=== PATIENT | male | born 1935 | race Caucasian/White ===

== ENCOUNTER 2017-10-11 17:00 | Inpatient (IN) | payer MEDICARE, BC ==
[~2017-10-11] VITALS: Ht 182.9 cm; Wt 63.7 kg
[~2017-10-11 17:00] MED LIST: AUGM875T PO; THYR15 PO
[2017-10-11 17:16] VITALS: BP 109/74; PULSE 128; RESP 18; O2SAT 99
[2017-10-11] MEDS ORDERED: SODIUM CHLORIDE 0.9% FLUSH 10 ML FLUSH IVF PRN (17:30)
[2017-10-11] MEDS ORDERED: DILTIAZEM HCL 25 MG/5 ML VIAL IV ONE (17:45)
--- NOTE | 2017-10-11 17:51 | RADRPT ---
EXAM DATE/TIME: 10/11/2017 17:32 [facility] COMPARISON: CHEST SINGLE AP, March 11, 2016, 18:41. INDICATIONS : Shortness of breath. MEDICAL HISTORY : Atrial fibrillation. SURGICAL HISTORY : None. ENCOUNTER: Initial ACUITY: 1 day PAIN SCORE: 0/10 LOCATION: Bilateral chest FINDINGS: The cardiac silhouette is normal in transverse diameter. The lungs are hyperinflated but clear. No ef fusions are identified. There is prominence of the aortic knob is with calcification characteristic o f atherosclerotic vascular disease. Calcified granuloma is present in the right hilum. Calcified gran uloma is present in the right lung. CONCLUSION: 1. Findings of COPD. No acute cardiopulmonary disease. Ilan Mendoza MD on October 11, 2017 at 17:48 Board Certified Radiologist. This report was verified electronically.
[2017-10-11 18:09] LABS: AUTOMATED NEUTROPHIL # 2.6 TH/MM3 (1.8-7.7); BASOPHIL % 0.7 % (0.0-2.0); EOSINOPHIL # 0.1 TH/MM3 (0-0.4); EOSINOPHIL % 1.3 % (0.0-4.0); HEMATOCRIT 36.7 % (39.0-51.0); HEMOGLOBIN 12.9 GM/DL (13.0-17.0); LYMPH % 54.5 % (9.0-44.0); LYMPHOCYTE # 3.9 TH/MM3 (1.0-4.8); MEAN CELL VOLUME 89.9 FL (80.0-100.0); MEAN CORPUSCULAR HEMOGLOBIN 31.7 PG (27.0-34.0); MEAN CORPUSCULAR HGB CONC 35.3 % (32.0-36.0); MONO % 7.8 % (0.0-8.0); MONOCYTE # 0.6 TH/MM3 (0-0.9); NEUT % 35.7 % (16.0-70.0); PLATELET COUNT 144 TH/MM3 (150-450); RED BLOOD COUNT 4.08 MIL/MM3 (4.50-5.90); RED CELL DISTRIBUTION WIDTH 13.9 % (11.6-17.2); WHITE BLOOD COUNT 7.2 TH/MM3 (4.0-11.0)
[2017-10-11 18:20] LABS: INTERNATIONAL NORMALIZED RATIO 1.2 RATIO; PROTHROMBIN TIME - PATIENT 12.1 SEC (9.8-11.6)
--- NOTE | 2017-10-11 18:27 | PD ---
HPI Chief Complaint: Cardiac Complaint Time Seen by Provider: 17:22 Travel History International Travel<30 days: No Contact w/Intl Traveler<30days: No Traveled to known affect area: No History of Present Illness HPI 82-year-old male states that he's been feeling palpitations since last night. His states that over the past couple weeks he's had an unsteady gait and not acting himself. The patient denies any current chest pain or pressure. He states he's been out of atrial fibrillation for the past 5 years. He states he used to follow with Dr. Scruggs and followed with him about a year ago. He states his last stress test was 6 years ago and was okay as far as he knows. He denies any other concurrent complaints. Quality is irregular. Severity is persistent per patient. Duration is about since last night. He states he is not on any anticoagulation at this time. He doesn't remember what he used to be on. PFSH Past Medical History Atrial Fibrillation: Yes (ABLATION X 3) Blood Disorders: No Heart Rhythm Problems: Yes Cancer: Yes (PROSTATE) Cardiac Catheterization: Yes Cardiovascular Problems: Yes Chest Pain: No Congestive Heart Failure: No Diminished Hearing: No Endocrine: No Genitourinary: No Hypertension: No Immune Disorder: No Implanted Vascular Access Dvce: No Musculoskeletal: No Neurologic: No Psychiatric: No Reproductive: No Respiratory: Yes Myocardial Infarction: Yes Thyroid Disease: Yes Past Surgical History Abdominal Surgery: Yes (HERNIA X 2) Tonsillectomy: Yes Other Surgery: Yes (ablation) Social History Alcohol Use: No Tobacco Use: No Substance Use: No Allergies-Medications (Allergen,Severity, Reaction): Coded Allergies: No Known Allergies (Unverified , 03/11/16) Reported Meds & Prescriptions Reported Meds & Active Scripts Active Reported [place] Thyroid (Thyroid) 15 Mg Tab 30 Mg PO DAILY Review of Systems Except as stated in HPI: all other systems reviewed are Neg Physical Exam Narrative GENERAL: Well-nourished, well-developed patient. SKIN: Warm and dry. HEAD: Normocephalic and atraumatic. EYES: No injection or drainage. ENT: No nasal drainage noted. NECK: Supple, trachea midline. CARDIOVASCULAR: irregular rate and rhythm RESPIRATORY: Breath sounds equal bilaterally. No accessory muscle use. GASTROINTESTINAL: Abdomen soft, non-tender, nondistended. EXTREMITIES: No edema. NEUROLOGICAL: Awake and alert. Motor and sensory grossly within normal limits. Normal speech. Data Data Last Documented VS Vital Signs Date Time Temp Pulse Resp B/P (MAP) Pulse Ox O2 Delivery O2 Flow Rate FiO2 10/11/17 17:16 99 Room Air 10/11/17 17:16 128 18 109/74 (86) Orders Orders Electrocardiogram (10/11/17 17:28) B-Type Natriuretic Peptide (10/11/17 17:28) Ckmb (Isoenzyme) Profile (10/11/17 17:28) Complete Blood Count With Diff (10/11/17 17:28) Comprehensive Metabolic Panel (10/11/17 17:28) Magnesium (Mg) (10/11/17 17:28) Prothrombin Time / Inr (Pt) (10/11/17 17:28) Act Partial Throm Time (Ptt) (10/11/17 17:28) Troponin I (10/11/17 17:28) Chest, Single Ap (10/11/17 17:28) Ecg Monitoring (10/11/17 17:28) Bilateral Bp Monitoring (10/11/17 17:28) Iv Access Insert/Monitor (10/11/17 17:28) Oximetry (10/11/17 17:28) Sodium Chloride 0.9% Flush (Ns Flush) (10/11/17 17:30) Diltiazem Inj (Cardizem Inj) (10/11/17 17:45) Ct Brain W/O Iv Contrast(Rout) (10/11/17 ) Consult Cardiology (10/11/17 ) Diltiazem Inj (Cardizem Inj) (10/11/17 18:30) Sodium Chloride 0.9% Flush (Ns Flush) (10/11/17 18:30) (Hub Use Only)Inp Phy Cons/Ref (10/11/17 ) Digoxin Inj (Lanoxin Inj) (10/11/17 18:45) Admit Order (Ed Use Only) (10/11/17 18:38) Aspirin (Aspirin) (10/11/17 18:45) Heparin Inj (Heparin Inj) (10/11/17 18:45) Heparin Inj (Heparin Inj) (10/12/17 00:45) Heparin Inj (Heparin Inj) (10/12/17 00:45) Heparin-D5w 25,000 U/250 Ml (Heparin-D5w (10/11/17 18:45) Cbc No Diff, Includes Plts (10/14/17 06:00) Act Partial Throm Time (Ptt) (10/12/17 01:41) Occult Blood (Hemoccult) Stool (10/11/17 18:41) Labs Laboratory Tests Test 10/11/17 17:20 White Blood Count 7.2 TH/MM3 Red Blood Count 4.08 MIL/MM3 Hemoglobin 12.9 GM/DL Hematocrit 36.7 % Mean Corpuscular Volume 89.9 FL Mean Corpuscular Hemoglobin 31.7 PG Mean Corpuscular Hemoglobin Concent 35.3 % Red Cell Distribution Width 13.9 % Platelet Count 144 TH/MM3 Mean Platelet Volume 8.0 FL Neutrophils (%) (Auto) 35.7 % Lymphocytes (%) (Auto) 54.5 % Monocytes (%) (Auto) 7.8 % Eosinophils (%) (Auto) 1.3 % Basophils (%) (Auto) 0.7 % Neutrophils # (Auto) 2.6 TH/MM3 Lymphocytes # (Auto) 3.9 TH/MM3 Monocytes # (Auto) 0.6 TH/MM3 Eosinophils # (Auto) 0.1 TH/MM3 Basophils # (Auto) 0.0 TH/MM3 CBC Comment AUTO DIFF Prothrombin Time 12.1 SEC Prothromb Time International Ratio 1.2 RATIO Activated Partial Thromboplast Time 26.4 SEC Blood Urea Nitrogen 25 MG/DL Creatinine 1.03 MG/DL Random Glucose 100 MG/DL Total Protein 7.0 GM/DL Albumin 4.2 GM/DL Calcium Level 9.1 MG/DL Magnesium Level 2.1 MG/DL Alkaline Phosphatase 56 U/L Aspartate Amino Transf (AST/SGOT) 18 U/L Alanine Aminotransferase (ALT/SGPT) 28 U/L Total Bilirubin 0.3 MG/DL Sodium Level 142 MEQ/L Potassium Level 4.2 MEQ/L Chloride Level 107 MEQ/L Carbon Dioxide Level 27.5 MEQ/L Anion Gap 8 MEQ/L Estimat Glomerular Filtration Rate 69 ML/MIN Total Creatine Kinase 100 U/L Troponin I LESS THAN 0.02 NG/ML MDM Medical Decision Making Medical Screen Exam Complete: Yes Emergency Medical Condition: Yes Medical Record Reviewed: Yes (past history confirmed) Interpretation(s) A. fib shows a flutter at 140 with mild elevation inferiorly without Cipro culture changes CBC & BMP Diagram 10/11/17 17:20 CBC & BMP Diagram 10/11/17 17:20 Total Protein 7.0, Albumin 4.2, Calcium Level 9.1, Magnesium Level 2.1, Alkaline Phosphatase 56, Aspartate Amino Transf (AST/SGOT) 18, Alanine Aminotransferase (ALT/SGPT) 28, Total Bilirubin 0.3 Last 24 hours Impressions Chest X-Ray 10/11/17 1728 Signed Impressions: Service Date/Time: Wednesday, October 11, 2017 17:32 - CONCLUSION: 1. Findings of COPD. No acute cardiopulmonary disease. Ilan Mendoza MD Differential Diagnosis Atrial fibrillation, CT, SVT, renal failure, electrolyte abnormality Narrative Course 82-year-old male presents with A. fib with RVR. He has rate related ischemic changes inferiorly on his EKG. We'll discuss with cardiology. Went back to talk with patient and he was already seen by Dr. Boyle and states he has not seen Dr. Scruggs for at least a year and I talked with him about seen who is on-call for Dr. Scruggs or whether he wanted to continue to see them the man who ordered he saw him and he states he would like to continue with Dr. Boyle. Consult placed and patient agrees to admission to the hospital CT without bleed when discussed with radiologist, will start on heparin drip and aspirin. Given creatinine is normal will loaded with digoxin as discussed with Dr. Boyle. Given patient is still tachycardic Will place on Cardizem drip and he'll be monitored in the intermediate care area. Critical Care Narrative Aggregate critical care time was 31 minutes. Time to perform other separately billable procedures was not included in the critical care time. My time did not include minutes spent treating any other patients simultaneously or on activities that did not directly contribute to the patient's treatment. The services I provided to this patient were to treat and/or prevent clinically significant deterioration that could result in: hypotension, CT, shock I provided critical care services requiring my management, as noted below: Chart data review, documentation time, medication orders and management, vital sign assessments/reviewing monitor data, ordering and reviewing lab tests, ordering and interpreting/reviewing x-rays and diagnostic studies, care of the patient and discussion of the patient with the admitting physicians. Physician Communication Physician Communication dr boyle states to give low dose Cardizem and if creatinine is okay to give a half a milligram of digoxin. If CT brain shows no bleed to loaded with heparin Diagnosis Primary Impression: Atrial flutter with rapid ventricular response Additional Impressions: ST segment changes on electrocardiogram Dizziness Admitting Information Admitting Physician Requests: Admit Nano Burrows MD Oct 11, 2017 18:27
[2017-10-11] MEDS ORDERED: SODIUM CHLORIDE 0.9% FLUSH 10 ML FLUSH IV FLUSH PRN ×2 (18:30→19:30)
[2017-10-11 18:31] LABS: ALBUMIN 4.2 GM/DL (3.4-5.0); ALT (GPT) 28 U/L (12-78); AST (GOT) 18 U/L (15-37); BICARBONATE 27.5 MEQ/L (21.0-32.0); BLOOD UREA NITROGEN 25 MG/DL (7-18); CALCIUM 9.1 MG/DL (8.5-10.1); CHLORIDE 107 MEQ/L (98-107); CREATININE 1.03 MG/DL (0.60-1.30); GLOMERULAR FILTRATION RATE 69 ML/MIN (>89); GLUCOSE,RANDOM 100 MG/DL (74-106); MAGNESIUM 2.1 MG/DL (1.5-2.5); SODIUM (NA) 142 MEQ/L (136-145)
[2017-10-11 18:35] LABS: ALKALINE PHOSPHATASE 56 U/L (45-117); TOTAL BILIRUBIN ADULT 0.3 MG/DL (0.2-1.0); TROPONIN I LESS THAN 0.02 NG/ML (0.02-0.05)
[2017-10-11] MEDS ORDERED: DIGOXIN 0.5 MG/2 ML VIAL IV PUSH ONE (18:45)
[2017-10-11] MEDS ORDERED: ASPIRIN 325 MG TAB PO ONE (18:45)
[2017-10-11] MEDS ORDERED: HEPARIN SODIUM - IV 10,000 UNITS/10 ML VIAL IV ONE (18:45)
[2017-10-11 19:04] LABS: LYMPHOCYTES 70 % (9-44); MONOCYTES 4 % (0-8); NEUTROPHIL # MANUAL DIFF 1.7 TH/MM3 (1.8-7.7); POLYS (SEG NEUTROPHILS) 24 % (16-70)
--- NOTE | 2017-10-11 19:14 | HHI.HP ---
HPI Service [facility] Primary Care Physician Unknown Admission Diagnosis atrial flutter with rvr Diagnoses: (1) Atrial fibrillation with RVR Diagnosis: Principal (2) TIA (transient ischemic attack) Diagnosis: Principal (3) Thrombocytopenia Diagnosis: Principal (4) COPD (chronic obstructive pulmonary disease) Diagnosis: Principal Travel History International Travel<30 Days: No Contact w/Intl Traveler <30 Da: No Traveled to Known Affected Are: No History of Present Illness This is an 82-year-old male with PMH of HTN, Prostate CA, A. fib s/p Ablation x3 and Hypothyroidism who presented to the ER secondary to complaints of palpitations. States palpitations started approx 2-3 wks ago, have been intermittent, now more frequent. Moderate severity. No associated chest pain or SOB. also notes episodes of dizziness and gait instability. No facial droop, slurred speech or weakness reported. On arrival, pt noted to be in A- fib w/ RVR, HR 130's. EKG w/ rate-related ischemic changes. Dr. Boyle consulted, recommended Cardizem/Heparin gtt. BP 109/74, HR 128, O2 sat 99% on RA, Afebrile. CBC unremarkable except for platelets 144, previously 95 on 07/31. Chemistry essentially unremarkable except for BUN 25. GFR 69. Troponin negative. BNP 106. CXR with COPD. CT Head w/ no acute findings. Review of Systems Except as stated in HPI: all other systems reviewed are Neg ROS: 14 point review of systems otherwise negative. Past Family Social History Past Medical History PMH: HTN, Prostate CA, A. fib s/p Ablation x3 and Hypothyroidism Past Surgical History PAST SURGICAL HISTORY: Hernia Repair, Tonsillectomy Allergies: Coded Allergies: No Known Allergies (Unverified , 03/11/16) Family History PAST FAMILY HISTORY: Reviewed. No h/o DM or CAD Social History PAST SOCIAL HISTORY: Negative for alcohol, tobacco or drugs. Physical Exam Vital Signs Vital Signs Date Time Temp Pulse Resp B/P (MAP) Pulse Ox O2 Delivery O2 Flow Rate FiO2 10/11/17 17:16 99 Room Air 10/11/17 17:16 128 18 109/74 (86) 99 Room Air Physical Exam PE: GENERAL: Very pleasant elderly white male in no acute distress. HEENT: PERRLA, EOMI. No scleral icterus or conjunctival pallor. No lid lag or facial droop. CARDIOVASCULAR: Irregularly irregular. No obvious murmurs to auscultation. No chest tenderness to palpation. RESPIRATORY: No obvious rhonchi or wheezing. Clear to auscultation. Breath sounds equal bilaterally. GASTROINTESTINAL: Abdomen soft, non-tender, nondistended. BS normal. MUSCULOSKELETAL: Extremities without clubbing, cyanosis, or edema. No obvious deformities. NEUROLOGICAL: Awake, alert and oriented x4. No focal neurologic deficits. Moving both upper and lower extremities spontaneously. Laboratory Laboratory Tests Test 10/11/17 17:20 White Blood Count 7.2 Red Blood Count 4.08 Hemoglobin 12.9 Hematocrit 36.7 Mean Corpuscular Volume 89.9 Mean Corpuscular Hemoglobin 31.7 Mean Corpuscular Hemoglobin Concent 35.3 Red Cell Distribution Width 13.9 Platelet Count 144 Mean Platelet Volume 8.0 Neutrophils (%) (Auto) 35.7 Lymphocytes (%) (Auto) 54.5 Monocytes (%) (Auto) 7.8 Eosinophils (%) (Auto) 1.3 Basophils (%) (Auto) 0.7 Neutrophils # (Auto) 2.6 Lymphocytes # (Auto) 3.9 Monocytes # (Auto) 0.6 Eosinophils # (Auto) 0.1 Basophils # (Auto) 0.0 CBC Comment AUTO DIFF Differential Total Cells Counted 100 Neutrophils % (Manual) 24 Lymphocytes % 70 Monocytes % 4 Eosinophils % 2 Neutrophils # (Manual) 1.7 Differential Comment FINAL DIFF MANUAL Prothrombin Time 12.1 Prothromb Time International Ratio 1.2 Activated Partial Thromboplast Time 26.4 Blood Urea Nitrogen 25 Creatinine 1.03 Random Glucose 100 Total Protein 7.0 Albumin 4.2 Calcium Level 9.1 Magnesium Level 2.1 Alkaline Phosphatase 56 Aspartate Amino Transf (AST/SGOT) 18 Alanine Aminotransferase (ALT/SGPT) 28 Total Bilirubin 0.3 Sodium Level 142 Potassium Level 4.2 Chloride Level 107 Carbon Dioxide Level 27.5 Anion Gap 8 Estimat Glomerular Filtration Rate 69 Total Creatine Kinase 100 Troponin I LESS THAN 0.02 B-Type Natriuretic Peptide 106 Result Diagram: 10/11/17 1720 10/11/17 1720 Caprini VTE Risk Assessment Caprini VTE Risk Assessment: Mod/High Risk (score >= 2) Caprini Risk Assessment Model Point Value = 1 Point Value = 2 Point Value = 3 Point Value = 5 Age 41-60 Minor surgery BMI > 25 kg/m2 Swollen legs Varicose veins or History of unexplained or recurrent spontaneous Oral contraceptives or hormone replacement Sepsis (< 1 month) Serious lung disease, including pneumonia (< 1 month) Abnormal pulmonary function Acute myocardial infarction Congestive heart failure (< 1 month) History of inflammatory bowel disease Medical patient at bed rest Age 61-74 Arthroscopic surgery Major open surgery (> 45 min) Laparoscopic surgery (> 45 min) Malignancy Confined to bed (> 72 hours) Immobilizing plaster cast Central venous access Age >= 75 History of VTE Family history of VTE Factor V Leiden Prothrombin [id number] Lupus anticoagulant Anticardiolipin antibodies Elevated serum homocysteine Heparin-induced thrombocytopenia Other congenital or acquired thrombophilia Stroke (< 1 month) Elective arthroplasty Hip, pelvis, or leg fracture Acute spinal cord injury (< 1 month) Prophylaxis Regimen Total Risk Factor Score Risk Level Prophylaxis Regimen 0-1 Low Early ambulation 2 Moderate Order ONE of the following: *Sequential Compression Device (SCD) *Heparin 5000 units SQ BID 3-4 Higher Order ONE of the following medications: *Heparin 5000 units SQ TID *Enoxaparin/Lovenox 40 mg SQ daily (WT < 150 kg, CrCl > 30 mL/min) *Enoxaparin/Lovenox 30 mg SQ daily (WT < 150 kg, CrCl > 10-29 mL/min) *Enoxaparin/Lovenox 30 mg SQ BID (WT < 150 kg, CrCl > 30 mL/min) AND/OR *Sequential Compression Device (SCD) 5 or more Highest Order ONE of the following medications: *Heparin 5000 units SQ TID (Preferred with Epidurals) *Enoxaparin/Lovenox 40 mg SQ daily (WT < 150 kg, CrCl > 30 mL/min) *Enoxaparin/Lovenox 30 mg SQ daily (WT < 150 kg, CrCl > 10-29 mL/min) *Enoxaparin/Lovenox 30 mg SQ BID (WT < 150 kg, CrCl > 30 mL/min) AND *Sequential Compression Device (SCD) Assessment and Plan Problem List: (1) Atrial fibrillation with RVR ICD Code: I48.91 - Unspecified atrial fibrillation (2) TIA (transient ischemic attack) ICD Code: G45.9 - Transient cerebral ischemic attack, unspecified (3) Thrombocytopenia ICD Code: D69.6 - Thrombocytopenia, unspecified (4) COPD (chronic obstructive pulmonary disease) ICD Code: J44.9 - Chronic obstructive pulmonary disease, unspecified Assessment and Plan A/P: 1. Afib w/ RVR: h/o Afib s/p Ablation x3, now w/ c/o palpitations, Afib w/ RVR on arrival. Dr. Boyle consulted by ER physician, recommendation for Cardizem gtt, Digoxin and Heparin gtt. Initial trop negative, EKG w/ rate- related ischemic changes. Admit to [facility], place on telemetry, continue Cardizem/ Heparin. Check serial cardiac enzymes to rule out underlying ischemia, repeat EKG w/ trop. Check Echo to eval for valve abnormalities/cardiomyopathy. Will need long-term anticoagulation. 2. TIA: dizziness w/ gait instability x2-3 wks, possibly secondary to episodes of A-fib or possible TIA. CT Head w/ no acute findings, images reviewed by me. Neurology consult placed by Cardio. Will follow up for further recommendations. Check MRI/MRA. PT for eval/tx. 3. Thrombocytopenia: Platelets 144, no active bleeding at this time. Monitor closely in light of Heparin gtt. Check Hemoccult. 4. COPD: Chronic Respiratory Failure. CXR w/ evidence of COPD, images reviewed by me. Xopenx prn in light of Afib. 5. DVT Prophylaxis: Heparin gtt 6. Social work for d/c planning as needed. 7. Records/labs/imaging reviewed by me. Case discussed at length w/ day physician. Physician Certification 2 Midnight Certification Type: Admission for Inpatient Services Order for Inpatient Services The services are ordered in accordance with Medicare regulations or non- Medicare payer requirements, as applicable. In the case of services not specified as inpatient-only, they are appropriately provided as inpatient services in accordance with the 2-midnight benchmark. Estimated LOS (days): 2 days is the estimated time the patient will need to remain in the hospital, assuming treatment plan goals are met and no additional complications. Post-Hospital Plan: Not yet determined Acacia Inman MD Oct 11, 2017 19:14
[2017-10-11] MEDS ORDERED: MAGNESIUM HYDROXIDE SUSP 30 ML CUP PO PRN (19:30)
[2017-10-11] MEDS ORDERED: LACTULOSE SYRUP 20 GM/30 ML CUP PO PRN (19:30)
[2017-10-11] MEDS ORDERED: ACETAMINOPHEN/HYDROcodone 325 MG/5 MG TAB PO PRN (19:30)
[2017-10-11] MEDS ORDERED: ONDANSETRON HCL 4 MG/2 ML VIAL IVP PRN (19:30)
[2017-10-11] MEDS ORDERED: MORPHINE SULFATE 2 MG/ML INJ IV PUSH PRN (19:30)
[2017-10-11] MEDS ORDERED: SENNOSIDES 8.6 MG TAB PO PRN (19:30)
[2017-10-11] MEDS ORDERED: BISACODYL 10 MG SUPP RECTAL PRN (19:30)
[2017-10-11] MEDS ORDERED: ACETAMINOPHEN 325 MG TAB PO PRN (19:30)
--- NOTE | 2017-10-11 19:35 | MB ---
cc: MATEUS GREWAL M.D. DATE OF CONSULTATION 10/11/17 HISTORY OF PRESENT ILLNESS Ld is a very pleasant 82-year-old gentleman with history of chronic A. fib status post ablation x3, currently on no medication who presents with a chief complaint of palpitation. His also notes that he has had difficulty standing up from a chair and the patient complains of "double vision" of recent onset. Otherwise denies any chest pain, fevers, chills, cough, or GI bleeding, paroxysmal nocturnal dyspnea, orthopnea, syncope or dizziness or chest pain. PAST MEDICAL HISTORY 1. status post hernia repair x2 2. Tonsillectomy 3. Chronic neuropathy SOCIAL HISTORY Denies tobacco or alcohol use. ALLERGIES None. MEDICATIONS [place] thyroid 15 mg daily. In the hospital 1. Heparin bolus and drip 2. Cardizem drip 3. Digoxin 0.5 mg IV x1 4. Aspirin 325 x1 PHYSICAL EXAMINATION VITAL SIGNS: Pulse 128, blood pressure 109/74, sats 99% on room air. GENERAL: He is alert and oriented times three in no acute distress. NECK: Supple. No JVD or bruit CARDIOVASCULAR: S1, S2. No murmurs, rubs or gallops. LUNGS: Clear to auscultation bilaterally ABDOMEN: Soft, nontender, nondistended, positive bowel sounds. EXTREMITIES: No lower extremity edema. LABORATORY DATA White count 7.3, hemoglobin 12.9, hematocrit 36.__, platelet count 144. Sodium 142, potassium 4.3, chloride 105, bicarb 27.5. BUN 25, creatinine 1.03, Troponin is less than 0.02, INR 1.2. CARDIOLOGY STUDIES EKG showed A. fib at a rate of 145 beats per minute and slight ST elevation in the inferior leads 0.5 mm to 1 mm. DIAGNOSES 1. Atrial fibrillation with rapid ventricular response 2. Questionable TIA 3. Neuropathy 4. Thrombocytopenia 5. Anemia DISCUSSION At this point in time, head CT shows no evidence of acute CVA or bleed. The patient has been started on heparin and given an aspirin in the ER. He has also been put on Cardizem drip and a bolus of IV Dig for rate control. The patient's CHADS vasc score is equal to 2. Therefore, I do recommend long-term anticoagulation with Coumadin or another oral anticoagulant agent. I will also get a neurology consult given the patient's new neurologic symptoms and recurrent atrial fibrillation. Recommend telemetry monitoring as well. MD JACOBO Alvarado/ /6:48 PM /7:11 PM
[2017-10-11] MEDS: HEPARIN-D5W 25,000 U/250 ML 250 ML IV PRN (20:00)
[2017-10-11 20:02] VITALS: BP 126/79; PULSE 129; RESP 18; O2SAT 98
[2017-10-11 21:00] VITALS: BP 117/90; PULSE 130; RESP 20; TEMP 97.9; O2SAT 98
[2017-10-11] MEDS: DOCUSATE SODIUM 50 MG/SENNA 8.6 MG TAB PO SCH ×2 (21:37→21:40)
[2017-10-11] MEDS: DILTIAZEM INJ 125 MG in SODIUM CHLORIDE 0.9% INJ 100 ML IV PRN (21:38)
[2017-10-11] MEDS: SODIUM CHLORIDE 0.9% FLUSH 10 ML FLUSH IV FLUSH SCH (21:38)
[2017-10-11 23:00] VITALS: BP 150/92; PULSE 101; PULSE 132; RESP 14; TEMP 97.6; O2SAT 97
[2017-10-12] VITALS (26 sets, daily range): BP systolic 95–117; BP diastolic 47–80; PULSE 66–144; RESP 16–18; TEMP 97.7–98; O2SAT 96–98
[2017-10-12] MEDS ORDERED: HEPARIN SODIUM - IV 10,000 UNITS/10 ML VIAL IV PRN (00:45)
[2017-10-12] MEDS: HEPARIN SODIUM - IV 10,000 UNITS/10 ML VIAL IV PRN ×2 (02:18→02:19)
[2017-10-12] MEDS: DOCUSATE SODIUM 50 MG/SENNA 8.6 MG TAB PO SCH ×2 (09:00→21:00)
[2017-10-12] MEDS: THYROID 30 MG TAB PO SCH (09:31)
[2017-10-12] MEDS: SODIUM CHLORIDE 0.9% FLUSH 10 ML FLUSH IV FLUSH SCH ×2 (09:32→21:00)
[2017-10-12 09:40] LABS: AUTOMATED NEUTROPHIL # 1.7 TH/MM3 (1.8-7.7); BASOPHIL % 0.5 % (0.0-2.0); EOSINOPHIL # 0.1 TH/MM3 (0-0.4); EOSINOPHIL % 1.4 % (0.0-4.0); HEMATOCRIT 38.1 % (39.0-51.0); HEMOGLOBIN 13.2 GM/DL (13.0-17.0); LYMPH % 69.3 % (9.0-44.0); LYMPHOCYTE # 5.1 TH/MM3 (1.0-4.8); MEAN CELL VOLUME 89.2 FL (80.0-100.0); MEAN CORPUSCULAR HEMOGLOBIN 30.9 PG (27.0-34.0); MEAN CORPUSCULAR HGB CONC 34.6 % (32.0-36.0); MEAN PLATELET VOLUME 7.4 FL (7.0-11.0); MONO % 5.8 % (0.0-8.0); MONOCYTE # 0.4 TH/MM3 (0-0.9); PLATELET COUNT 125 TH/MM3 (150-450); RED BLOOD COUNT 4.27 MIL/MM3 (4.50-5.90); RED CELL DISTRIBUTION WIDTH 13.6 % (11.6-17.2); WHITE BLOOD COUNT 7.3 TH/MM3 (4.0-11.0)
[2017-10-12 10:08] LABS: ALBUMIN 4.3 GM/DL (3.4-5.0); AST (GOT) 15 U/L (15-37); BICARBONATE 28.9 MEQ/L (21.0-32.0); BLOOD UREA NITROGEN 23 MG/DL (7-18); CALCIUM 9.5 MG/DL (8.5-10.1); CHLORIDE 105 MEQ/L (98-107); CREATININE 1.01 MG/DL (0.60-1.30); GLOMERULAR FILTRATION RATE 71 ML/MIN (>89); GLUCOSE,RANDOM 80 MG/DL (74-106); SODIUM (NA) 142 MEQ/L (136-145)
[2017-10-12 10:13] LABS: ALKALINE PHOSPHATASE 57 U/L (45-117); ALT (GPT) 25 U/L (12-78); TOTAL BILIRUBIN ADULT 0.5 MG/DL (0.2-1.0); TOTAL PROTEIN 7.1 GM/DL (6.4-8.2); TROPONIN I 0.03 NG/ML (0.02-0.05)
[2017-10-12 10:22] LABS: BANDS 1 % (0-6); LYMPHOCYTES 73 % (9-44); METAMYELOCYTES 1 % (0-1); MONOCYTES 2 % (0-8); MYELOCYTES 1 % (0-0); NEUTROPHIL # MANUAL DIFF 1.8 TH/MM3 (1.8-7.7); POLYS (SEG NEUTROPHILS) 22 % (16-70)
[2017-10-12 10:24] LABS: OVALOCYTES 1+ (NORMAL)
--- NOTE | 2017-10-12 11:01 | RADRPT ---
EXAM DATE/TIME: 10/12/2017 10:20 [facility] COMPARISON: No previous studies available for comparison. INDICATIONS : TIA. MEDICAL HISTORY : Carcinoma, prostate. SURGICAL HISTORY : Inguinal hernia repair. Cardiac ablation. ENCOUNTER: Initial ACUITY: 2 day PAIN SCORE: 0/10 LOCATION: cranial TECHNIQUE: Multiplanar, multisequence MRI of the brain was performed without contrast. FINDINGS: CEREBRUM: Cerebral atrophy is noted. No evidence of midline shift, mass lesion, hemorrhage or acute infarction. No extraaxial fluid collections are seen. The pituitary gland and suprasellar cistern are normal i n configuration. WHITE MATTER: Moderate periventricular and subcortical white matter small vessel ischemic changes are noted bilater ally. POSTERIOR FOSSA: The cerebellum is intact. Mild pontine small vessel ischemic changes are noted bilaterally. The 4th ventricle is midline. The cerebellopontine angle is unremarkable. The cerebellar tonsils are normal in position. DIFFUSION IMAGING: No focal areas of restricted diffusion are seen. No evidence of acute infarction. EXTRACRANIAL: The visualized portions of the orbits and paranasal sinuses are unremarkable. CONCLUSION: 1. No acute infarct, acute hemorrhage, midline shift or extra-axial fluid collections. 2. Moderate periventricular and subcortical white matter small vessel ischemic changes bilaterally. 3. Mild bilateral pontine small vessel ischemic changes. 4. Cerebral atrophy. Jose Martinez MD on October 12, 2017 at 10:56 Board Certified Radiologist. This report was verified electronically.
--- NOTE | 2017-10-12 11:02 | RADRPT ---
EXAM DATE/TIME: 10/12/2017 10:20 [facility] COMPARISON: No previous studies available for comparison. INDICATIONS : TIA. MEDICAL HISTORY : Carcinoma, prostate. SURGICAL HISTORY : Inguinal hernia repair. Cardiac ablation. ENCOUNTER: Initial ACUITY: 2 day PAIN SCORE: 0/10 LOCATION: cranial Please note a normal MRA of the brain does not entirely exclude the possibility of a small aneurysm, nor the possibility of distal intracranial vessel disease. TECHNIQUE: 3D time of flight MRA was performed. Source images, multiplanar STS MIP, and 3D volume MIP reconstru ctions were reviewed. FINDINGS: There is excellent visualization of the major intracranial arteries out to the second-order branch ve ssels. There is no evidence for aneurysm, vessel truncation or stenosis, and no evidence for vascula r malformation. CONCLUSION: No acute disease. Jose Martinez MD on October 12, 2017 at 10:59 Board Certified Radiologist. This report was verified electronically.
[2017-10-12] MEDS ORDERED: SODIUM CHLORIDE 0.9% FLUSH 10 ML FLUSH IV FLUSH PRN (11:30)
[2017-10-12] MEDS ORDERED: DEXTROSE 50% IN WATER 50 ML VIAL(D50) IV PUSH PRN (11:30)
[2017-10-12] MEDS ORDERED: GLUCAGON 1 MG/ML VIAL OTHER PRN (11:30)
[2017-10-12] MEDS: INSULIN ASPART SUPPLEMENTAL SCALE SQ SCH ×3 (12:00→21:00)
--- NOTE | 2017-10-12 12:00 | MB ---
cc: KASHMIR ESPINOZA DATE OF CONSULTATION: 10/12/2017 REASON FOR CONSULTATION: Possible TIA. HISTORY OF PRESENT ILLNESS Mr. Medina is an 82-year-old man who has a long history of unsteady gait due to her peripheral neuropathy, states that several days ago his balance became acutely worse with vertigo, also had associated double vision coming and going. This was associated with a headache. He has a history of atrial fibrillation, status post ablation x3. He had no focal weakness or numbness. PAST MEDICAL HISTORY 1. History of A-fib with ablation in the past. He was found to be in A-fib in the ER on arrival with RVR. 2. History of prostate cancer. 3. Hypertension. ALLERGIES None known. MEDICATIONS AT HOME 1. [place] Thyroid in the hospital. He is now on heparin drip. 2. Cardizem drip. 3. Digoxin. 4. Aspirin 325 milligrams. NEUROLOGICAL EXAMINATION: His blood pressure is 98/71, pulse 109, respiratory rate 18, temperature 97.7 degrees. Higher cortical functions are normal. Cranial nerves are within normal limits. The extraocular movements are normal. He has no nystagmus. Pupils equal and reactive. Motor exam reveals 5/5 strength of all groups in the upper and lower extremities. There is no drift. Reflexes are symmetric. MRI of the brain, no acute change. He has moderate ischemic demyelinization in the centrum semi ovale as well as the stephanie bilaterally. MRA of the brain, no acute change present. LABORATORY DATA: The white count is 7300, hemoglobin 13.2, hematocrit 38%, platelet count 125,000. Sodium is 142, potassium 4.4, chloride 105, CO2 28.9, BUN is 23, creatinine 1.01. GFR 71. Glucose is 80. PT 12.1, INR 1.2, APTT initially 26.4, now 39.7 on heparin. IMPRESSION: The patient has baseline balance difficulties from neuropathy but the acute increase in dysequilibrium associated with double vision is very suggestive of vertebrobasilar TIA. He does have a history of atrial fibrillation, therefore, I agree with anticoagulation. Would like to evaluate him further with CT angiogram of the neck to rule out any vertebral artery disease, also echocardiogram and lipid panel. MD MARY BETH Uriarte/SIERRA /11:08 AM /11:36 AM
--- NOTE | 2017-10-12 12:16 | PD.CARD.PN ---
Subjective Subjective Remarks alert in nad Objective Medications Current Medications Medications (Trade) Dose Ordered Sig/[place] Route Start Time Stop Time Status Last Admin (NS Flush) 2 ml UNSCH PRN IVF 10/11/17 17:30 10/11/17 18:15 Diltiazem HCl 125 mg/Sodium Chloride 125 ml @ 5 mls/hr TITRATE PRN IV 10/11/17 18:30 10/11/17 21:38 (NS Flush) 2 ml UNSCH PRN IV FLUSH 10/11/17 18:30 (Heparin Inj) 5,000 units UNSCH PRN IV 10/12/17 00:45 (Heparin Inj) 2,500 units UNSCH PRN IV 10/12/17 00:45 10/12/17 02:19 Heparin Sodium/ Dextrose 250 ml @ 8 mls/hr TITRATE PRN IV 10/11/17 18:45 10/11/17 20:00 (NS Flush) 2 ml UNSCH PRN IV FLUSH 10/11/17 19:30 (NS Flush) 2 ml BID IV FLUSH 10/11/17 21:00 10/12/17 09:32 (Zofran Inj) 4 mg Q6H PRN IVP 10/11/17 19:30 (Tylenol) 650 mg Q6H PRN PO 10/11/17 19:30 ([place] 5-325 Mg) 1 tab Q4H PRN PO 10/11/17 19:30 (Morphine Inj) 2 mg Q3H PRN IV PUSH 10/11/17 19:30 (Paty-Colace) 1 tab BID PO 10/11/17 21:00 (Milk Of Magnesia Liq) 30 ml Q12H PRN PO 10/11/17 19:30 (Senokot) 17.2 mg Q12H PRN PO 10/11/17 19:30 (Dulcolax Supp) 10 mg DAILY PRN RECTAL 10/11/17 19:30 (Lactulose Liq) 30 ml DAILY PRN PO 10/11/17 19:30 ([place] Thyroid) 30 mg DAILY PO 10/12/17 09:00 10/12/17 09:31 (NovoLOG SUPPLEMENTAL SCALE) 1 ACHS SQ 10/12/17 12:00 (D50w (Vial) Inj) 50 ml UNSCH PRN IV PUSH 10/12/17 11:30 (Glucagon Inj) 1 mg UNSCH PRN OTHER 10/12/17 11:30 Vital Signs / I&O Vital Signs Date Time Temp Pulse Resp B/P (MAP) Pulse Ox O2 Delivery O2 Flow Rate FiO2 10/12/17 12:00 113 10/12/17 11:46 97.9 115 18 117/80 (92) 97 10/12/17 11:00 144 10/12/17 10:00 88 10/12/17 09:00 92 10/12/17 08:00 109 10/12/17 07:32 97.7 92 18 98/71 (80) 98 10/12/17 07:00 106 10/12/17 06:00 72 10/12/17 05:00 74 10/12/17 04:00 71 10/12/17 03:00 66 10/12/17 03:00 97.8 66 16 101/58 (72) 96 10/12/17 02:00 74 10/12/17 01:00 66 10/12/17 00:00 90 10/11/17 23:00 132 10/11/17 23:00 97.6 101 14 150/92 (111) 97 10/11/17 21:38 130 117/90 10/11/17 21:00 130 10/11/17 21:00 97.9 130 20 117/90 (99) 98 10/11/17 20:53 10/11/17 20:02 129 18 126/79 (95) 98 Room Air 10/11/17 17:16 99 Room Air 10/11/17 17:16 128 18 109/74 (86) 99 Room Air I/O 10/11/17 10/11/17 10/11/17 10/12/17 10/12/17 10/12/17 07:00 15:00 23:00 07:00 15:00 23:00 Intake Total 580 ml Output Total 875 ml Balance -295 ml Intake Oral 580 ml Output Urine Total 875 ml # Voids 1 Physical Exam GENERAL: SKIN: Warm and dry. HEAD: Normocephalic. EYES: No scleral icterus. No injection or drainage. NECK: Supple, trachea midline. No JVD or lymphadenopathy. CARDIOVASCULAR: Regular rate and rhythm without murmurs, gallops, or rubs. RESPIRATORY: Breath sounds equal bilaterally. No accessory muscle use. GASTROINTESTINAL: Abdomen soft, non-tender, nondistended. MUSCULOSKELETAL: No cyanosis, or edema. BACK: Nontender without obvious deformity. No CVA tenderness. Laboratory Laboratory Tests Test 10/11/17 17:20 10/12/17 01:09 10/12/17 09:10 White Blood Count 7.2 TH/MM3 7.3 TH/MM3 Red Blood Count 4.08 MIL/MM3 4.27 MIL/MM3 Hemoglobin 12.9 GM/DL 13.2 GM/DL Hematocrit 36.7 % 38.1 % Mean Corpuscular Volume 89.9 FL 89.2 FL Mean Corpuscular Hemoglobin 31.7 PG 30.9 PG Mean Corpuscular Hemoglobin Concent 35.3 % 34.6 % Red Cell Distribution Width 13.9 % 13.6 % Platelet Count 144 TH/MM3 125 TH/MM3 Mean Platelet Volume 8.0 FL 7.4 FL Neutrophils (%) (Auto) 35.7 % 23.0 % Lymphocytes (%) (Auto) 54.5 % 69.3 % Monocytes (%) (Auto) 7.8 % 5.8 % Eosinophils (%) (Auto) 1.3 % 1.4 % Basophils (%) (Auto) 0.7 % 0.5 % Neutrophils # (Auto) 2.6 TH/MM3 1.7 TH/MM3 Lymphocytes # (Auto) 3.9 TH/MM3 5.1 TH/MM3 Monocytes # (Auto) 0.6 TH/MM3 0.4 TH/MM3 Eosinophils # (Auto) 0.1 TH/MM3 0.1 TH/MM3 Basophils # (Auto) 0.0 TH/MM3 0.0 TH/MM3 CBC Comment AUTO DIFF AUTO DIFF Differential Total Cells Counted 100 100 Neutrophils % (Manual) 24 % 22 % Lymphocytes % 70 % 73 % Monocytes % 4 % 2 % Eosinophils % 2 % Neutrophils # (Manual) 1.7 TH/MM3 1.8 TH/MM3 Differential Comment FINAL DIFF MANUAL FINAL DIFF MANUAL Prothrombin Time 12.1 SEC Prothromb Time International Ratio 1.2 RATIO Activated Partial Thromboplast Time 26.4 SEC 33.6 SEC 39.7 SEC Blood Urea Nitrogen 25 MG/DL 23 MG/DL Creatinine 1.03 MG/DL 1.01 MG/DL Random Glucose 100 MG/DL 80 MG/DL Total Protein 7.0 GM/DL 7.1 GM/DL Albumin 4.2 GM/DL 4.3 GM/DL Calcium Level 9.1 MG/DL 9.5 MG/DL Magnesium Level 2.1 MG/DL Alkaline Phosphatase 56 U/L 57 U/L Aspartate Amino Transf (AST/SGOT) 18 U/L 15 U/L Alanine Aminotransferase (ALT/SGPT) 28 U/L 25 U/L Total Bilirubin 0.3 MG/DL 0.5 MG/DL Sodium Level 142 MEQ/L 142 MEQ/L Potassium Level 4.2 MEQ/L 4.4 MEQ/L Chloride Level 107 MEQ/L 105 MEQ/L Carbon Dioxide Level 27.5 MEQ/L 28.9 MEQ/L Anion Gap 8 MEQ/L 8 MEQ/L Estimat Glomerular Filtration Rate 69 ML/MIN 71 ML/MIN Total Creatine Kinase 100 U/L Troponin I LESS THAN 0.02 NG/ML 0.03 NG/ML 0.03 NG/ML B-Type Natriuretic Peptide 106 PG/ML Band Neutrophils % 1 % Metamyelocytes 1 % Myelocytes 1 % Platelet Estimate LOW Platelet Morphology Comment NORMAL Ovalocytes 1+ Imaging Last 24 hours Impressions Head Magnetic Resonance Angiography 10/12/17 0000 Signed Impressions: Service Date/Time: Thursday, October 12, 2017 10:20 - CONCLUSION: No acute disease. Jose Martinez MD Brain MRI 10/12/17 0000 Signed Impressions: Service Date/Time: Thursday, October 12, 2017 10:20 - CONCLUSION: 1. No acute infarct, acute hemorrhage, midline shift or extra-axial fluid collections. 2. Moderate periventricular and subcortical white matter small vessel ischemic changes bilaterally. 3. Mild bilateral pontine small vessel ischemic changes. 4. Cerebral atrophy. Jose Martinez MD Chest X-Ray 10/11/17 1728 Signed Impressions: Service Date/Time: Wednesday, October 11, 2017 17:32 - CONCLUSION: 1. Findings of COPD. No acute cardiopulmonary disease. Ilan Mendoza MD Assessment and Plan Problem List: (1) Atrial flutter with rapid ventricular response ICD Codes: I48.92 - Unspecified atrial flutter Status: Acute (2) TIA (transient ischemic attack) ICD Codes: G45.9 - Transient cerebral ischemic attack, unspecified Assessment and Plan 1.) Aflutter - rate controlled, convet iv cardizem to po, chadsvasc score = 3, therefore recommend coumadin or noac, f/u neuro work up, continue heparin until inr > 2.0 or patient starts noac Honorio Boyle MD Oct 12, 2017 12:16
--- NOTE | 2017-10-12 12:45 | EKG ---
Date Performed: 10/11/2017 Time Performed: 17:19:56 PTAGE: 82 years EKG: Probable atrial flutter with 2:1 AV conduction with ventricular rate of 139 bpm Generalized low voltage Nonspecific T-wave change PREVIOUS TRACING : 03/11/2016 20.44 Since previous tracing, there is a rhythm change from Sinus rhythm to atrial flutter. DOCTOR: Joe Quick Interpretating Date/Time 10/12/2017 12:44:58
--- NOTE | 2017-10-12 12:48 | EKG ---
Date Performed: 10/12/2017 Time Performed: 00:04:00 PTAGE: 82 years EKG: Atrial flutter with controlled ventricular response and one PVC Questionable Q-waves inferi cristóbal of undetermined significance Low QRS voltage Abnormal ECG PREVIOUS TRACING : 10/11/2017 17.19 Since previous tracing, ventricular response of the atrial flutter has been reduced from 139 to 82. The PVC is new. DOCTOR: Joe Quick Interpretating Date/Time 10/12/2017 12:46:37
--- NOTE | 2017-10-12 12:49 | EKG ---
Date Performed: 10/12/2017 Time Performed: 06:14:28 PTAGE: 82 years EKG: Atrial flutter with controlled ventriciular response Generalized low voltage Questionable Q -waves inferiorly of undetermined significance Abnormal ECG PREVIOUS TRACING : 10/12/2017 00.04 Since previous tracing, no significant change. DOCTOR: Joe Quick Interpretating Date/Time 10/12/2017 12:47:59
--- NOTE | 2017-10-12 16:13 | HHI.PR ---
Subjective Remarks Patient is resting comfortably in his tara with his laptop. He is cognitively intact and relays to me his history of ablation and his 's experience with atrial fibrillation. He denies any chest pain or shortness of breath Objective Vitals Vital Signs Date Time Temp Pulse Resp B/P (MAP) Pulse Ox O2 Delivery O2 Flow Rate FiO2 10/12/17 15:45 97.8 88 18 103/47 (65) 98 10/12/17 15:00 98 10/12/17 14:38 74 84/47 10/12/17 14:00 84 10/12/17 13:00 86 10/12/17 12:00 113 10/12/17 11:46 97.9 115 18 117/80 (92) 97 10/12/17 11:00 144 10/12/17 10:00 88 10/12/17 10:00 140 117/80 10/12/17 09:00 92 10/12/17 08:00 109 10/12/17 07:32 97.7 92 18 98/71 (80) 98 10/12/17 07:00 106 10/12/17 06:00 72 10/12/17 05:00 74 10/12/17 04:00 71 10/12/17 03:00 66 10/12/17 03:00 97.8 66 16 101/58 (72) 96 10/12/17 02:00 74 10/12/17 01:00 66 10/12/17 00:00 90 10/11/17 23:00 132 10/11/17 23:00 97.6 101 14 150/92 (111) 97 10/11/17 21:38 130 117/90 10/11/17 21:00 130 10/11/17 21:00 97.9 130 20 117/90 (99) 98 10/11/17 20:53 10/11/17 20:02 129 18 126/79 (95) 98 Room Air 10/11/17 17:16 99 Room Air 10/11/17 17:16 128 18 109/74 (86) 99 Room Air I/O 10/11/17 10/11/17 10/11/17 10/12/17 10/12/17 10/12/17 07:00 15:00 23:00 07:00 15:00 23:00 Intake Total 580 ml Output Total 875 ml Balance -295 ml Intake Oral 580 ml Output Urine Total 875 ml # Voids 1 Result Diagram: 10/12/17 0910/12/17 0910 Objective Remarks GENERAL: Well-nourished, well-developed patient. SKIN: Warm and dry. HEAD: Normocephalic. EYES: No scleral icterus. No injection or drainage. NECK: Supple, trachea midline. No JVD or lymphadenopathy. CARDIOVASCULAR: Tachycardia about 140, irregularly irregular RESPIRATORY: Breath sounds equal bilaterally. No accessory muscle use. GASTROINTESTINAL: Abdomen soft, non-tender, nondistended. MUSCULOSKELETAL: No cyanosis, or edema. BACK: Nontender without obvious deformity. No CVA tenderness. EXTREMITIES: no edema A/P Problem List: (1) Atrial fibrillation with RVR ICD Code: I48.91 - Unspecified atrial fibrillation (2) TIA (transient ischemic attack) ICD Code: G45.9 - Transient cerebral ischemic attack, unspecified (3) Thrombocytopenia ICD Code: D69.6 - Thrombocytopenia, unspecified (4) COPD (chronic obstructive pulmonary disease) ICD Code: J44.9 - Chronic obstructive pulmonary disease, unspecified Assessment and Plan Atrial Fibrillation w/ RVR Controlled on Cardizem Drip, but hypotension has caused it to be held, which results in tachycardia Patient has gone 5 years since his ablation without palpitations until recently Cardiology consulted Questionable TIA Patient denies any weakness, only complained that he was dizzy during the palpitations MRA of brain shows no acute changes MRI of brain shows distal changes from peripheral disease, which is most likely chronic Anticoagulation is in place for the atrial fibrillation Hypotension Adequate hydration, will defer to cardiology to consider alternative treatments for A Fib DVT Prophylaxis Heparin Carl Bronson MD Oct 12, 2017 16:13
--- NOTE | 2017-10-12 17:08 | ECHRPT ---
Indication: CONCLUSIONS The left ventricular systolic function is normal with an estimated ejection fraction in the range of 60-65%. Normal left ventricular size. Wall thickness is normal. No regional wall motion abnormalities are present. Trace mitral valve regurgitation. There is trace tricuspid valve regurgitation. The estimated pulmonary arterial pressure is 41.8 mmHg. BP: 101 / 58 HR: 72 Rhythm: Atrial fibrillation MEASUREMENTS (Male / Female) Normal Values Technical Quality:Fair 2D ECHO LV Diastolic Diameter PLAX 3.4 cm 4.2 - 5.9 / 3.9 - 5.3 cm LV Systolic Diameter PLAX 2.2 cm IVS Diastolic Thickness 0.8 cm 0.6 - 1.0 / 0.6 - 0.9 cm LVPW Diastolic Thickness 0.8 cm 0.6 - 1.0 / 0.6 - 0.9 cm LV Relative Wall Thickness 0.5 LVOT Diameter 1.9 cm LA Systolic Diameter LX 2.6 cm 3.0 - 4.0 / 2.7 - 3.8 cm LV Ejection Fraction MOD 4C 54.1 % LV Cardiac Index MOD 4C 1579.3 cm/minm LV Ejection Fraction 4C AL 59.0 % LV Cardiac Index 4C AL 1778.8 cm/minm M-MODE Aortic Root Diameter MM 2.1 cm AV Cusp Separation MM 1.1 cm DOPPLER AV Peak Velocity 140.0 cm/s AV Peak Gradient 7.8 mmHg LVOT Peak Velocity 83.4 cm/s LVOT Peak Gradient 2.8 mmHg AV Area Cont Eq pk 1.7 cm MV Area PHT 2.8 cm LV E' Lateral Velocity 9.6 cm/s LV E' Septal Velocity 6.2 cm/s TR Peak Velocity 282.0 cm/s TR Peak Gradient 31.8 mmHg Right Atrial Pressure 10.0 mmHg Pulmonary Artery Systolic Pressu 41.8 mmHg Right Ventricular Systolic Press 41.8 mmHg FINDINGS LEFT VENTRICLE The left ventricular systolic function is normal with an estimated ejection fraction in the range of 60-65%. Normal left ventricular size. Wall thickness is normal. No regional wall motion abnormalities are present. RIGHT VENTRICLE Normal right ventricular size and systolic function. LEFT ATRIUM The left atrial size is normal. RIGHT ATRIUM The right atrial size is normal. ATRIAL SEPTUM Normal atrial septal thickness without atrial level shunting by limited color doppler interrogation. AORTA The aortic root and proximal ascending aorta are normal in size on limited imaging. MITRAL VALVE Structurally normal mitral valve. Trace mitral valve regurgitation. AORTIC VALVE Trileaflet aortic valve. No aortic valve stenosis or regurgitation. TRICUSPID VALVE Structurally normal tricuspid valve. There is trace tricuspid valve regurgitation. The estimated pulmonary arterial pressure is 41.8 mmHg. PULMONARY VALVE No pulmonary valve regurgitation or stenosis. VESSELS The inferior vena cava is normal in size. PERICARDIUM No pericardial effusion. Mika Blank MD (Electronically Signed) Final Date:12 October 2017 17:06
[2017-10-12] MEDS: DILTIAZEM INJ 125 MG in SODIUM CHLORIDE 0.9% INJ 100 ML IV PRN ×2 (18:02→21:50)
--- NOTE | 2017-10-12 19:45 | RADRPT ---
EXAM DATE/TIME: 10/11/2017 18:01 [facility] COMPARISON: No previous studies available for comparison. INDICATIONS : Altered mental status today. RADIATION DOSE: 43.27 CTDIvol (mGy) MEDICAL HISTORY : Cardiovascular disease. SURGICAL HISTORY : None. ENCOUNTER: Initial ACUITY: 1 day PAIN SCALE: 0/10 LOCATION: Bilateral head TECHNIQUE: Multiple contiguous axial images were obtained of the head. Using automated exposure control and adj ustment of the mA and/or kV according to patient size, radiation dose was kept as low as reasonably a chievable to obtain optimal diagnostic quality images. DICOM format image data is available electro nically for review and comparison. FINDINGS: CEREBRUM: The CSF spaces are moderately enlarged.. No evidence of midline shift, mass lesion, hemorrhage or ac canelo infarction. Mild hypodensity is present throughout the cervical white matter. No extra-axial flu id collections are seen. POSTERIOR FOSSA: The cerebellum and brainstem are intact. The 4th ventricle is midline. The cerebellopontine angle i s unremarkable. EXTRACRANIAL: The visualized portion of the orbits is intact. SKULL: The calvaria is intact. No evidence of skull fracture. CONCLUSION: 1. Aging brain with enlarged CSF spaces and chronic white matter ischemic disease. 2. No evidence of acute infarct, hemorrhage, mass or edema. Liang Calderon MD on October 11, 2017 at 18:40 Board Certified Radiologist. This report was verified electronically.
[2017-10-12] MEDS ORDERED: SODIUM CHLORIDE 0.9% FLUSH 10 ML FLUSH IV FLUSH SCH (21:00)
[2017-10-12] MEDS: HEPARIN-D5W 25,000 U/250 ML 250 ML IV PRN (21:52)
[2017-10-13] VITALS (16 sets, daily range): BP systolic 95–121; BP diastolic 60–79; PULSE 60–122; RESP 18–20; TEMP 97.4–98.6; O2SAT 96–98
[2017-10-13 06:38] LABS: CHOLESTEROL/ HDL RATIO 3.44 RATIO; HDL CHOLESTEROL 37.4 MG/DL (40.0-60.0)
[2017-10-13] MEDS: INSULIN ASPART SUPPLEMENTAL SCALE SQ SCH ×4 (08:00→20:41)
[2017-10-13] MEDS: DOCUSATE SODIUM 50 MG/SENNA 8.6 MG TAB PO SCH ×2 (08:53→20:41)
[2017-10-13] MEDS: THYROID 30 MG TAB PO SCH (08:53)
[2017-10-13] MEDS: SODIUM CHLORIDE 0.9% FLUSH 10 ML FLUSH IV FLUSH SCH ×2 (09:00→20:41)
[2017-10-13 09:36] LABS: HEMOGLOBIN A1C 5.4 % (4.3-6.0)
[2017-10-13] MEDS ORDERED: IOHEXOL 350 MG/ML 10 ML VIAL (for RAD DIAG) IVCONTRAST ONE (11:36)
--- NOTE | 2017-10-13 12:31 | RADRPT ---
EXAM DATE/TIME: 10/13/2017 11:33 [facility] COMPARISON: No previous studies available for comparison. INDICATIONS : Altered mental status Unsteady gait. IV CONTRAST: 80 cc Omnipaque 350 (iohexol) IV RADIATION DOSE: 10.48 CTDIvol (mGy) MEDICAL HISTORY : Cardiovascular disease. Carcinoma, prostate. Thyroid disease SURGICAL HISTORY : Hernia, ablition ENCOUNTER: Initial ACUITY: 1 day PAIN SCALE: 0/10 LOCATION: Bilateral head Elevated flow velocities and ICA/CCA ratios have been found to correlate with increased degrees of vessel stenosis, calculated as percentage of diameter relative to a normal segment of distal ICA/CCA. TECHNIQUE: Volumetric scanning was performed using a multirow detector CT scanner. The data was post processed with a variety of visualization algorithms including full-volume maximum intensity projection, multip lanar sliding thin-slab reformation, curved-planar reformation, and surface-rendering techniques. Us ing automated exposure control and adjustment of the mA and/or kV according to patient size, radiatio n dose was kept as low as reasonably achievable to obtain optimal diagnostic quality images. DICOM f ormat image data is available electronically for review and comparison. FINDINGS: AORTIC ARCH: There is a three-vessel origin of the great vessels from the aorta. No evidence of ostial narrowing. RIGHT CAROTID: The common carotid artery is intact. The carotid bulb has a normal configuration without ulceration o r narrowing. The internal carotid artery lumen is smooth without stenosis. The external carotid raz ry is intact. LEFT CAROTID: The common carotid artery is intact. The carotid bulb has a normal configuration without ulceration or narrowing. The internal carotid artery lumen is smooth without stenosis. The external carotid ar teri is intact. VERTEBRALS: The vertebral arteries have a symmetric diameter. No stenotic lesions are seen. 3.5 cm right thyroid mass. Ultrasound is suggested. CONCLUSION: Negative for hemodynamically significant stenosis. 3.5 cm right thyroid mass. Clive Stauffer MD FACR on October 13, 2017 at 12:28 Board Certified Radiologist. This report was verified electronically.
--- NOTE | 2017-10-13 15:05 | PD.CARD.PN ---
Subjective Subjective Remarks alert in nad Objective Medications Current Medications Medications (Trade) Dose Ordered Sig/[place] Route Start Time Stop Time Status Last Admin (NS Flush) 2 ml UNSCH PRN IVF 10/11/17 17:30 10/11/17 18:15 Diltiazem HCl 125 mg/Sodium Chloride 125 ml @ 5 mls/hr TITRATE PRN IV 10/11/17 18:30 10/12/17 21:50 (NS Flush) 2 ml UNSCH PRN IV FLUSH 10/11/17 18:30 (Heparin Inj) 5,000 units UNSCH PRN IV 10/12/17 00:45 (Heparin Inj) 2,500 units UNSCH PRN IV 10/12/17 00:45 10/12/17 02:19 Heparin Sodium/ Dextrose 250 ml @ 8 mls/hr TITRATE PRN IV 10/11/17 18:45 10/12/17 21:52 (NS Flush) 2 ml UNSCH PRN IV FLUSH 10/11/17 19:30 (NS Flush) 2 ml BID IV FLUSH 10/11/17 21:00 10/12/17 21:00 (Zofran Inj) 4 mg Q6H PRN IVP 10/11/17 19:30 (Tylenol) 650 mg Q6H PRN PO 10/11/17 19:30 ([place] 5-325 Mg) 1 tab Q4H PRN PO 10/11/17 19:30 (Morphine Inj) 2 mg Q3H PRN IV PUSH 10/11/17 19:30 (Paty-Colace) 1 tab BID PO 10/11/17 21:00 10/13/17 08:53 (Milk Of Magnesia Liq) 30 ml Q12H PRN PO 10/11/17 19:30 (Senokot) 17.2 mg Q12H PRN PO 10/11/17 19:30 (Dulcolax Supp) 10 mg DAILY PRN RECTAL 10/11/17 19:30 (Lactulose Liq) 30 ml DAILY PRN PO 10/11/17 19:30 ([place] Thyroid) 30 mg DAILY PO 10/12/17 09:00 10/13/17 08:53 (NovoLOG SUPPLEMENTAL SCALE) 1 ACHS SQ 10/12/17 12:00 (D50w (Vial) Inj) 50 ml UNSCH PRN IV PUSH 10/12/17 11:30 (Glucagon Inj) 1 mg UNSCH PRN OTHER 10/12/17 11:30 Vital Signs / I&O Vital Signs Date Time Temp Pulse Resp B/P (MAP) Pulse Ox O2 Delivery O2 Flow Rate FiO2 10/13/17 14:40 97 10/13/17 12:35 86 10/13/17 12:23 97.8 90 18 106/75 (85) 96 10/13/17 10:12 87 10/13/17 08:52 97.4 98 18 101/60 (74) 96 10/13/17 06:39 91 10/13/17 03:00 98.3 77 106/69 (81) 98 10/13/17 03:00 89 10/13/17 00:31 98.2 88 95/65 (75) 98 10/12/17 23:00 96 10/12/17 21:50 94 107/69 10/12/17 20:00 98.0 88 95/65 (75) 98 10/12/17 19:00 100 10/12/17 18:02 135 127/88 10/12/17 18:00 135 10/12/17 17:24 98 21 10/12/17 17:00 107 10/12/17 16:00 91 10/12/17 15:45 97.8 88 18 103/47 (65) 98 I/O 10/12/17 10/12/17 10/12/17 10/13/17 10/13/17 10/13/17 07:00 15:00 23:00 07:00 15:00 23:00 Intake Total 580 ml 720 ml 480 ml Output Total 875 ml 700 ml 720 ml Balance -295 ml 20 ml -240 ml Intake Oral 580 ml 720 ml 480 ml Output Urine Total 875 ml 700 ml 720 ml # Voids 1 # Bowel Movements 1 Physical Exam GENERAL: SKIN: Warm and dry. HEAD: Normocephalic. EYES: No scleral icterus. No injection or drainage. NECK: Supple, trachea midline. No JVD or lymphadenopathy. CARDIOVASCULAR: Regular rate and rhythm without murmurs, gallops, or rubs. RESPIRATORY: Breath sounds equal bilaterally. No accessory muscle use. GASTROINTESTINAL: Abdomen soft, non-tender, nondistended. MUSCULOSKELETAL: No cyanosis, or edema. BACK: Nontender without obvious deformity. No CVA tenderness. Laboratory Laboratory Tests Test 10/12/17 17:50 10/13/17 05:20 10/13/17 13:52 Activated Partial Thromboplast Time 35.0 SEC 37.1 SEC 40.4 SEC Triglycerides Level 108 MG/DL Cholesterol Level 129 MG/DL LDL Cholesterol 70 MG/DL HDL Cholesterol 37.4 MG/DL Cholesterol/HDL Ratio 3.44 RATIO Imaging Last 24 hours Impressions Neck CTA 10/13/17 0000 Signed Impressions: Service Date/Time: Friday, October 13, 2017 11:33 - CONCLUSION: Negative for hemodynamically significant stenosis. 3.5 cm right thyroid mass. Clive Stauffer MD FACR Assessment and Plan Problem List: (1) Atrial flutter with rapid ventricular response ICD Codes: I48.92 - Unspecified atrial flutter Status: Acute (2) TIA (transient ischemic attack) ICD Codes: G45.9 - Transient cerebral ischemic attack, unspecified Assessment and Plan 1.) Aflutter - rate controlled, convet iv cardizem to po, chadsvasc score = 3, therefore recommend coumadin or noac, f/u neuro work up, patient requests to start coumadin, ok to dc from cv standpoint on coumadin, cardizem cd 120 mg qd, f/u in my office 10/14/17; d/w patient and charge nurse, Honorio Esteves MD Oct 13, 2017 15:05
[2017-10-13 15:13] LABS: FREE T4 1.1 NG/DL (0.76-1.46)
[2017-10-13] MEDS: DILTIAZEM-CD 120 MG CAP ER PO SCH (16:00)
[2017-10-13] MEDS: WARFARIN SOD 5 MG TAB PO SCH (16:30)
[2017-10-13] MEDS: DIGOXIN 0.25 MG TAB PO SCH (16:30)
--- NOTE | 2017-10-13 20:54 | HHI.PR ---
Review/Management Diagnosis vertebrobasilar TIA atrial fibrillation Plan agree with anticoagulation Diagnosis/Plan: Subjective Subjective Comments No acute events reported Active Medications Current Medications Medications (Trade) Dose Ordered Sig/[place] Route Start Time Stop Time Status Last Admin (NS Flush) 2 ml UNSCH PRN IVF 10/11/17 17:30 10/11/17 18:15 Diltiazem HCl 125 mg/Sodium Chloride 125 ml @ 5 mls/hr TITRATE PRN IV 10/11/17 18:30 10/12/17 21:50 (NS Flush) 2 ml UNSCH PRN IV FLUSH 10/11/17 18:30 (Heparin Inj) 5,000 units UNSCH PRN IV 10/12/17 00:45 (Heparin Inj) 2,500 units UNSCH PRN IV 10/12/17 00:45 10/12/17 02:19 Heparin Sodium/ Dextrose 250 ml @ 8 mls/hr TITRATE PRN IV 10/11/17 18:45 10/12/17 21:52 (NS Flush) 2 ml UNSCH PRN IV FLUSH 10/11/17 19:30 (NS Flush) 2 ml BID IV FLUSH 10/11/17 21:00 10/13/17 20:41 (Zofran Inj) 4 mg Q6H PRN IVP 10/11/17 19:30 (Tylenol) 650 mg Q6H PRN PO 10/11/17 19:30 (Arabi 5-325 Mg) 1 tab Q4H PRN PO 10/11/17 19:30 (Morphine Inj) 2 mg Q3H PRN IV PUSH 10/11/17 19:30 (Paty-Colace) 1 tab BID PO 10/11/17 21:00 10/13/17 08:53 (Milk Of Magnesia Liq) 30 ml Q12H PRN PO 10/11/17 19:30 (Senokot) 17.2 mg Q12H PRN PO 10/11/17 19:30 (Dulcolax Supp) 10 mg DAILY PRN RECTAL 10/11/17 19:30 (Lactulose Liq) 30 ml DAILY PRN PO 10/11/17 19:30 ([place]itt Thyroid) 30 mg DAILY PO 10/12/17 09:00 10/13/17 08:53 (NovoLOG SUPPLEMENTAL SCALE) 1 ACHS SQ 10/12/17 12:00 (D50w (Vial) Inj) 50 ml UNSCH PRN IV PUSH 10/12/17 11:30 (Glucagon Inj) 1 mg UNSCH PRN OTHER 10/12/17 11:30 (Coumadin) 5 mg DAILY@1600 PO 10/13/17 16:00 10/13/17 16:30 (Lanoxin) 0.25 mg DAILY PO 10/13/17 16:00 10/13/17 16:30 (Cardizem Cd) 120 mg DAILY PO 10/13/17 16:00 10/13/17 16:00 Allergies Allergies Coded Allergies No Known Allergies (Unverified03/11/16) Exam I&O / VS Vital Signs Date Time Temp Pulse Resp B/P (MAP) Pulse Ox O2 Delivery O2 Flow Rate FiO2 10/13/17 18:23 60 10/13/17 16:39 101 10/13/17 16:39 98.6 101 18 118/76 (90) 97 10/13/17 15:11 95 10/13/17 14:40 97 10/13/17 12:35 86 10/13/17 12:23 97.8 90 18 106/75 (85) 96 10/13/17 10:12 87 10/13/17 08:52 97.4 98 18 101/60 (74) 96 10/13/17 06:39 91 10/13/17 03:00 98.3 77 106/69 (81) 98 10/13/17 03:00 89 10/13/17 00:31 98.2 88 95/65 (75) 98 10/12/17 23:00 96 10/12/17 21:50 94 107/69 Exam Comments stable Objective Radiology Results CTA neck--normal. normal vertebral arteries Micro and Labs Laboratory Tests Test 10/13/17 05:20 10/13/17 13:52 Activated Partial Thromboplast Time 37.1 40.4 Triglycerides Level 108 Cholesterol Level 129 LDL Cholesterol 70 HDL Cholesterol 37.4 Cholesterol/HDL Ratio 3.44 Free Thyroxine 1.10 Total Triiodothyronine 120 Thyroid Stimulating Hormone 3rd Gen 2.180 Date/Time Source Procedure Growth Status 10/12/17 11:03 Stool Stool Stool Occult Blood (KAMARI) - Final HEMOCCULT NEGATIVE Complete Satish Gonzalez MD PhD Oct 13, 2017 20:54
--- NOTE | 2017-10-13 21:48 | HHI.PR ---
Subjective Remarks Patient seen this morning around 11 AM. Says he is feeling all right. Denies any chest pain or shortness of breath. Denies any focal signs or symptoms. discussed with nurse. Heart rate appeared to be up into the 200s when ambulating today. Objective Vital Signs Date Time Temp Pulse Resp B/P (MAP) Pulse Ox O2 Delivery O2 Flow Rate FiO2 10/13/17 18:23 60 10/13/17 16:39 101 10/13/17 16:39 98.6 101 18 118/76 (90) 97 10/13/17 15:11 95 10/13/17 14:40 97 10/13/17 12:35 86 10/13/17 12:23 97.8 90 18 106/75 (85) 96 10/13/17 10:12 87 10/13/17 08:52 97.4 98 18 101/60 (74) 96 10/13/17 06:39 91 10/13/17 03:00 98.3 77 106/69 (81) 98 10/13/17 03:00 89 10/13/17 00:31 98.2 88 95/65 (75) 98 10/12/17 23:00 96 10/12/17 21:50 94 107/69 I/O 10/12/17 10/12/17 10/12/17 10/13/17 10/13/17 10/13/17 07:00 15:00 23:00 07:00 15:00 23:00 Intake Total 580 ml 720 ml 480 ml Output Total 875 ml 700 ml 720 ml Balance -295 ml 20 ml -240 ml Intake Oral 580 ml 720 ml 480 ml Output Urine Total 875 ml 700 ml 720 ml # Voids 1 # Bowel Movements 1 Result Diagram: 10/12/17 0910 10/12/17 0910 Objective Remarks GENERAL: patient lying in bed. Appears comfortable. SKIN: Warm and dry. HEAD: Normocephalic. EYES: No scleral icterus. No injection or drainage. NECK: Supple, trachea midline. No JVD. CARDIOVASCULAR: Regular rate and rhythm without murmurs, gallops, or rubs. RESPIRATORY: Breath sounds equal bilaterally. No accessory muscle use. GASTROINTESTINAL: Abdomen soft, non-tender, nondistended. MUSCULOSKELETAL: No cyanosis, or edema. BACK: Nontender without obvious deformity. No CVA tenderness. A/P Assessment and Plan //Atrial Fibrillation w/ RVR Controlled on Cardizem Drip, but hypotension has caused it to be held, which results in tachycardia Patient has gone 5 years since his ablation without palpitations until recently Cardiology consulted = Patient started on Cardizem, digoxin, warfarin as per cardiology. Appreciate assistance. Patient discharged by cardiology. Plan for discharge tomorrow. //Questionable TIA Patient denies any weakness, only complained that he was dizzy during the palpitations MRA of brain shows no acute changes MRI of brain shows distal changes from peripheral disease, which is most likely chronic Anticoagulation is in place for the atrial fibrillation = 10/13. CT a of neck performed and negative //Hypotension = 10/13. Blood pressure acceptable. We'll continue to monitor overnight. //DVT Prophylaxis Heparin Discharge Planning plan discharge tomorrow if stable. Shan Renner MD Oct 13, 2017 21:48
[2017-10-14] VITALS (26 sets, daily range): BP systolic 99–131; BP diastolic 64–77; PULSE 61–138; RESP 16–18; TEMP 97.2–98.4; O2SAT 95–100
[2017-10-14] MEDS ORDERED: DILTIAZEM HCL 25 MG/5 ML VIAL IV ONE (05:00)
[2017-10-14 06:57] LABS: HEMATOCRIT 37.1 % (39.0-51.0); HEMOGLOBIN 12.8 GM/DL (13.0-17.0); MEAN CELL VOLUME 89.8 FL (80.0-100.0); MEAN CORPUSCULAR HEMOGLOBIN 31.1 PG (27.0-34.0); MEAN CORPUSCULAR HGB CONC 34.6 % (32.0-36.0); MEAN PLATELET VOLUME 8.2 FL (7.0-11.0); PLATELET COUNT 117 TH/MM3 (150-450); RED BLOOD COUNT 4.13 MIL/MM3 (4.50-5.90); RED CELL DISTRIBUTION WIDTH 13.6 % (11.6-17.2); WHITE BLOOD COUNT 6.6 TH/MM3 (4.0-11.0)
[2017-10-14] MEDS ORDERED: SODIUM CHLOR 0.9% 1000 ML INJ 1,000 ML IV ONE (07:00)
[2017-10-14] MEDS: INSULIN ASPART SUPPLEMENTAL SCALE SQ SCH ×4 (08:00→20:57)
[2017-10-14] MEDS: THYROID 30 MG TAB PO SCH (08:34)
[2017-10-14] MEDS: DOCUSATE SODIUM 50 MG/SENNA 8.6 MG TAB PO SCH ×2 (08:34→21:06)
[2017-10-14] MEDS: DIGOXIN 0.25 MG TAB PO SCH (08:35)
[2017-10-14] MEDS: DILTIAZEM-CD 120 MG CAP ER PO SCH (08:35)
[2017-10-14] MEDS: SODIUM CHLORIDE 0.9% FLUSH 10 ML FLUSH IV FLUSH SCH ×2 (08:36→21:06)
[2017-10-14] MEDS ORDERED: DIGOXIN 0.5 MG/2 ML VIAL IV PUSH ONE (09:00)
[2017-10-14 11:28] LABS: ALBUMIN 3.6 GM/DL (3.4-5.0); BICARBONATE 28.7 MEQ/L (21.0-32.0); CALCIUM 8.6 MG/DL (8.5-10.1); CREATININE 1.11 MG/DL (0.60-1.30); PHOSPHORUS 3.7 MG/DL (2.5-4.9)
--- NOTE | 2017-10-14 14:48 | PD.CARD.PN ---
Subjective Subjective Remarks alert in nad Objective Medications Current Medications Medications (Trade) Dose Ordered Sig/Monroe Route Start Time Stop Time Status Last Admin (NS Flush) 2 ml UNSCH PRN IVF 10/11/17 17:30 10/11/17 18:15 Diltiazem HCl 125 mg/Sodium Chloride 125 ml @ 5 mls/hr TITRATE PRN IV 10/11/17 18:30 10/12/17 21:50 (NS Flush) 2 ml UNSCH PRN IV FLUSH 10/11/17 18:30 (Heparin Inj) 5,000 units UNSCH PRN IV 10/12/17 00:45 (Heparin Inj) 2,500 units UNSCH PRN IV 10/12/17 00:45 10/12/17 02:19 Heparin Sodium/ Dextrose 250 ml @ 8 mls/hr TITRATE PRN IV 10/11/17 18:45 10/12/17 21:52 (NS Flush) 2 ml UNSCH PRN IV FLUSH 10/11/17 19:30 (NS Flush) 2 ml BID IV FLUSH 10/11/17 21:00 10/13/17 20:41 (Zofran Inj) 4 mg Q6H PRN IVP 10/11/17 19:30 (Tylenol) 650 mg Q6H PRN PO 10/11/17 19:30 ([place] 5-325 Mg) 1 tab Q4H PRN PO 10/11/17 19:30 (Morphine Inj) 2 mg Q3H PRN IV PUSH 10/11/17 19:30 (Paty-Colace) 1 tab BID PO 10/11/17 21:00 10/14/17 08:34 (Milk Of Magnesia Liq) 30 ml Q12H PRN PO 10/11/17 19:30 (Senokot) 17.2 mg Q12H PRN PO 10/11/17 19:30 (Dulcolax Supp) 10 mg DAILY PRN RECTAL 10/11/17 19:30 (Lactulose Liq) 30 ml DAILY PRN PO 10/11/17 19:30 (Bowden Thyroid) 30 mg DAILY PO 10/12/17 09:00 10/14/17 08:34 (NovoLOG SUPPLEMENTAL SCALE) 1 ACHS SQ 10/12/17 12:00 (D50w (Vial) Inj) 50 ml UNSCH PRN IV PUSH 10/12/17 11:30 (Glucagon Inj) 1 mg UNSCH PRN OTHER 10/12/17 11:30 (Coumadin) 5 mg DAILY@1600 PO 10/13/17 16:00 10/13/17 16:30 (Lanoxin) 0.25 mg DAILY PO 10/13/17 16:00 10/14/17 08:35 (Cardizem Cd) 120 mg DAILY PO 10/13/17 16:00 10/14/17 08:35 Vital Signs / I&O Vital Signs Date Time Temp Pulse Resp B/P (MAP) Pulse Ox O2 Delivery O2 Flow Rate FiO2 10/14/17 12:00 98 10/14/17 11:51 97.6 93 18 110/76 (87) 100 10/14/17 11:00 92 10/14/17 10:12 98 21 10/14/17 10:00 92 10/14/17 09:00 134 10/14/17 08:09 97.6 122 18 99/75 (83) 97 10/14/17 08:00 125 10/14/17 07:00 130 10/14/17 06:00 126 10/14/17 05:00 138 10/14/17 04:20 97.2 136 16 107/66 (80) 98 10/14/17 04:00 135 10/14/17 03:00 95 10/14/17 02:00 80 10/14/17 01:00 99 10/14/17 00:00 102 10/14/17 00:00 97.4 98 16 131/77 (95) 96 10/13/17 23:00 95 10/13/17 22:00 95 10/13/17 21:00 82 10/13/17 20:00 95 10/13/17 20:00 98.5 100 20 121/79 (93) 96 10/13/17 19:00 122 10/13/17 18:23 60 10/13/17 16:39 101 10/13/17 16:39 98.6 101 18 118/76 (90) 97 10/13/17 15:11 95 I/O 10/13/17 10/13/17 10/13/17 10/14/17 10/14/17 10/14/17 06:59 14:59 22:59 06:59 14:59 22:59 Intake Total 480 ml 240 ml 1000 ml Output Total 720 ml 650 ml Balance -240 ml -410 ml 1000 ml Intake Oral 480 ml 240 ml IV Total 1000 ml Output Urine Total 720 ml 650 ml # Voids 2 Physical Exam GENERAL: SKIN: Warm and dry. HEAD: Normocephalic. EYES: No scleral icterus. No injection or drainage. NECK: Supple, trachea midline. No JVD or lymphadenopathy. CARDIOVASCULAR: Regular rate and rhythm without murmurs, gallops, or rubs. RESPIRATORY: Breath sounds equal bilaterally. No accessory muscle use. GASTROINTESTINAL: Abdomen soft, non-tender, nondistended. MUSCULOSKELETAL: No cyanosis, or edema. BACK: Nontender without obvious deformity. No CVA tenderness. Laboratory Laboratory Tests Test 10/14/17 00:18 10/14/17 05:17 10/14/17 10:35 Activated Partial Thromboplast Time 25.9 SEC White Blood Count 6.6 TH/MM3 Red Blood Count 4.13 MIL/MM3 Hemoglobin 12.8 GM/DL Hematocrit 37.1 % Mean Corpuscular Volume 89.8 FL Mean Corpuscular Hemoglobin 31.1 PG Mean Corpuscular Hemoglobin Concent 34.6 % Red Cell Distribution Width 13.6 % Platelet Count 117 TH/MM3 Mean Platelet Volume 8.2 FL Blood Urea Nitrogen 23 MG/DL Creatinine 1.11 MG/DL Random Glucose 182 MG/DL Albumin 3.6 GM/DL Calcium Level 8.6 MG/DL Phosphorus Level 3.7 MG/DL Magnesium Level 2.0 MG/DL Sodium Level 141 MEQ/L Potassium Level 3.7 MEQ/L Chloride Level 106 MEQ/L Carbon Dioxide Level 28.7 MEQ/L Anion Gap 6 MEQ/L Estimat Glomerular Filtration Rate 63 ML/MIN Assessment and Plan Problem List: (1) Atrial flutter with rapid ventricular response ICD Codes: I48.92 - Unspecified atrial flutter Status: Acute (2) TIA (transient ischemic attack) ICD Codes: G45.9 - Transient cerebral ischemic attack, unspecified Assessment and Plan 1.) Aflutter - rate controlled, convet iv cardizem to po, chadsvasc score = 3, therefore recommend coumadin or noac, f/u neuro work up, patient requests to start coumadin, due to tia will need therapeutic inr > 2.0 prior to discharge, continue coumadin, d/w patient and nurse Honorio Boyle MD Oct 14, 2017 14:48
--- NOTE | 2017-10-14 14:50 | HHI.FF ---
Face to Face Verification Diagnosis: (1) Atrial fibrillation with RVR (2) COPD (chronic obstructive pulmonary disease) (3) Atrial flutter with rapid ventricular response Physical Therapy Order: Evaluate and Treat Home Health Nursing Order: Nursing assessment with vital signs Instructions: home health nurse for medication management. Diving Coach Order: To Provide: Long range planning I have seen patient Ld Medina on 10/14/17. My clinical findings support the need for the requested home health care services because: Limited ability to care for self I certify that my clinical findings support that this patient is homebound because: Unsafe to leave home unassisted Shan Renner MD Oct 14, 2017 14:50
[2017-10-14] MEDS ORDERED: COUM5TAB PO (14:52)
[2017-10-14] MEDS ORDERED: DILT120C50 PO (14:52)
[2017-10-14] MEDS ORDERED: DIGO0.25 PO (14:52)
[2017-10-14] MEDS: WARFARIN SOD 5 MG TAB PO SCH (16:43)
[2017-10-14] MEDS ORDERED: ENOX60IN SQ (18:48)
--- NOTE | 2017-10-14 18:48 | HHI.PR ---
Subjective Remarks Patient seen today around noon. Says he is feeling all right. As any chest pain. Denies palpitations. Objective Vital Signs Date Time Temp Pulse Resp B/P (MAP) Pulse Ox O2 Delivery O2 Flow Rate FiO2 10/14/17 18:33 61 10/14/17 17:00 72 10/14/17 16:00 66 10/14/17 15:07 98.4 70 18 110/64 (79) 97 10/14/17 15:00 69 10/14/17 14:00 80 10/14/17 13:00 90 10/14/17 12:00 98 10/14/17 11:51 97.6 93 18 110/76 (87) 100 10/14/17 11:00 92 10/14/17 10:12 98 21 10/14/17 10:00 92 10/14/17 09:00 134 10/14/17 08:09 97.6 122 18 99/75 (83) 97 10/14/17 08:00 125 10/14/17 07:00 130 10/14/17 06:00 126 10/14/17 05:00 138 10/14/17 04:20 97.2 136 16 107/66 (80) 98 10/14/17 04:00 135 10/14/17 03:00 95 10/14/17 02:00 80 10/14/17 01:00 99 10/14/17 00:00 102 10/14/17 00:00 97.4 98 16 131/77 (95) 96 10/13/17 23:00 95 10/13/17 22:00 95 10/13/17 21:00 82 10/13/17 20:00 95 10/13/17 20:00 98.5 100 20 121/79 (93) 96 10/13/17 19:00 122 I/O 10/13/17 10/13/17 10/13/17 10/14/17 10/14/17 10/14/17 07:00 15:00 23:00 07:00 15:00 23:00 Intake Total 480 ml 240 ml 1000 ml 930 ml Output Total 720 ml 650 ml 300 ml Balance -240 ml -410 ml 1000 ml 630 ml Intake Oral 480 ml 240 ml 930 ml IV Total 1000 ml Output Urine Total 720 ml 650 ml 300 ml # Voids 2 4 Result Diagram: 10/14/17 0517 10/14/17 1035 Objective Remarks GENERAL: patient lying in bed. Appears comfortable. SKIN: Warm and dry. HEAD: Normocephalic. EYES: No scleral icterus. No injection or drainage. NECK: Supple, trachea midline. No JVD. CARDIOVASCULAR: Regular rate and rhythm without murmurs, gallops, or rubs. RESPIRATORY: Breath sounds equal bilaterally. No accessory muscle use. GASTROINTESTINAL: Abdomen soft, non-tender, nondistended. MUSCULOSKELETAL: No cyanosis, or edema. BACK: Nontender without obvious deformity. No CVA tenderness. A/P Assessment and Plan = 10/14/17 Initially heart rate had been elevated up to 130s this morning, for which I ordered a additional dose of digoxin. Subsequently under control. Had long discussion in the room regarding anticoagulation, pros and cons of novel anticoagulates, warfarin together with Dr. Boyle on speaker phone. Dr. Boyle would like INR to be therapeutic prior to discontinuation of bridging. Patient and will opt for home on warfarin with Lovenox bridge. does not have her prescription medication insurance card, will not be able to afford to pay out of pocket for Lovenox. She is going to look for her prescription card. Hopefully discharge home tomorrow morning. //Atrial Fibrillation w/ RVR Controlled on Cardizem Drip, but hypotension has caused it to be held, which results in tachycardia Patient has gone 5 years since his ablation without palpitations until recently Cardiology consulted = Patient started on Cardizem, digoxin, warfarin as per cardiology. Appreciate assistance. Patient discharged by cardiology. Plan for discharge tomorrow. //Questionable TIA Patient denies any weakness, only complained that he was dizzy during the palpitations MRA of brain shows no acute changes MRI of brain shows distal changes from peripheral disease, which is most likely chronic Anticoagulation is in place for the atrial fibrillation = 10/13. CT a of neck performed and negative for stenosis //Incidental thyroid mass. TSH, free T4, total T3 all within normal limits. Follow-up with primary care. //Hypotension = 10/13. Blood pressure acceptable. //DVT Prophylaxis Heparin Discharge Planning plan discharge tomorrow on warfarin with Lovenox bridge. , case management looking into insurance coverage for Lovenox. We'll continue on Cardizem, digoxin. Shan Renner MD Oct 14, 2017 18:48
--- NOTE | 2017-10-14 18:52 | HHI.DS ---
Discharge Summary Admission Date Oct 11, 2017 at 18:39 Discharge Date: Oct 15, 2017 Admitting Diagnosis atrial flutter with rvr (1) Atrial fibrillation with RVR ICD Code: I48.91 - Unspecified atrial fibrillation (2) TIA (transient ischemic attack) ICD Code: G45.9 - Transient cerebral ischemic attack, unspecified (3) Thrombocytopenia ICD Code: D69.6 - Thrombocytopenia, unspecified (4) COPD (chronic obstructive pulmonary disease) ICD Code: J44.9 - Chronic obstructive pulmonary disease, unspecified Procedures No invasive procedures. Brief History - From Admission This is an 82-year-old male with PMH of HTN, Prostate CA, A. fib s/p Ablation x3 and Hypothyroidism who presented to the ER secondary to complaints of palpitations. States palpitations started approx 2-3 wks ago, have been intermittent, now more frequent. Moderate severity. No associated chest pain or SOB. also notes episodes of dizziness and gait instability. No facial droop, slurred speech or weakness reported. On arrival, pt noted to be in A- fib w/ RVR, HR 130's. EKG w/ rate-related ischemic changes. Dr. Boyle consulted, recommended Cardizem/Heparin gtt. BP 109/74, HR 128, O2 sat 99% on RA, Afebrile. CBC unremarkable except for platelets 144, previously 95 on 07/31. Chemistry essentially unremarkable except for BUN 25. GFR 69. Troponin negative. BNP 106. CXR with COPD. CT Head w/ no acute findings. CBC/BMP: 10/14/17 0517 10/14/17 1035 Significant Findings Laboratory Tests Test 10/12/17 01:09 10/12/17 09:10 10/12/17 17:50 10/13/17 05:20 Activated Partial Thromboplast Time 33.6 SEC (24.3-30.1) 39.7 SEC (24.3-30.1) 35.0 SEC (24.3-30.1) 37.1 SEC (24.3-30.1) Red Blood Count 4.27 MIL/MM3 (4.50-5.90) Hematocrit 38.1 % (39.0-51.0) Platelet Count 125 TH/MM3 (150-450) Lymphocytes (%) (Auto) 69.3 % (9.0-44.0) Neutrophils # (Auto) 1.7 TH/MM3 (1.8-7.7) Lymphocytes # (Auto) 5.1 TH/MM3 (1.0-4.8) Lymphocytes % 73 % (9-44) Myelocytes 1 % (0-0) Platelet Estimate LOW (NORMAL) Ovalocytes 1+ (NORMAL) Blood Urea Nitrogen 23 MG/DL (7-18) Estimat Glomerular Filtration Rate 71 ML/MIN (>89) HDL Cholesterol 37.4 MG/DL (40.0-60.0) Test 10/13/17 13:52 10/14/17 00:18 10/14/17 05:17 10/14/17 10:35 Activated Partial Thromboplast Time 40.4 SEC (24.3-30.1) Red Blood Count 4.13 MIL/MM3 (4.50-5.90) Hemoglobin 12.8 GM/DL (13.0-17.0) Hematocrit 37.1 % (39.0-51.0) Platelet Count 117 TH/MM3 (150-450) Blood Urea Nitrogen 23 MG/DL (7-18) Random Glucose 182 MG/DL (74-106) Estimat Glomerular Filtration Rate 63 ML/MIN (>89) Imaging Last Impressions Neck CTA 10/13/17 0000 Signed Impressions: Service Date/Time: Friday, October 13, 2017 11:33 - CONCLUSION: Negative for hemodynamically significant stenosis. 3.5 cm right thyroid mass. Clive Stauffer MD FACR Head Magnetic Resonance Angiography 10/12/17 0000 Signed Impressions: Service Date/Time: Thursday, October 12, 2017 10:20 - CONCLUSION: No acute disease. Jose Martinez MD Brain MRI 10/12/17 0000 Signed Impressions: Service Date/Time: Thursday, October 12, 2017 10:20 - CONCLUSION: 1. No acute infarct, acute hemorrhage, midline shift or extra-axial fluid collections. 2. Moderate periventricular and subcortical white matter small vessel ischemic changes bilaterally. 3. Mild bilateral pontine small vessel ischemic changes. 4. Cerebral atrophy. Jose Martinez MD Chest X-Ray 10/11/17 1728 Signed Impressions: Service Date/Time: Wednesday, October 11, 2017 17:32 - CONCLUSION: 1. Findings of COPD. No acute cardiopulmonary disease. Ilan Mendoza MD Head CT 10/11/17 0000 Signed Impressions: Service Date/Time: Wednesday, October 11, 2017 18:01 - CONCLUSION: 1. Aging brain with enlarged CSF spaces and chronic white matter ischemic disease. 2. No evidence of acute infarct, hemorrhage, mass or edema. Liang Calderon MD PE at Discharge GENERAL: Well-nourished, well-developed patient. SKIN: Warm and dry. HEAD: Normocephalic. EYES: No scleral icterus. No injection or drainage. NECK: Supple, trachea midline. No JVD or lymphadenopathy. CARDIOVASCULAR: Tachycardia about 140, irregularly irregular RESPIRATORY: Breath sounds equal bilaterally. No accessory muscle use. GASTROINTESTINAL: Abdomen soft, non-tender, nondistended. MUSCULOSKELETAL: No cyanosis, or edema. BACK: Nontender without obvious deformity. No CVA tenderness. EXTREMITIES: no edema Hospital Course = 10/14/17 Initially heart rate had been elevated up to 130s this morning, for which I ordered a additional dose of digoxin. Subsequently under control. Had long discussion in the room regarding anticoagulation, pros and cons of novel anticoagulates, warfarin together with Dr. Boyle on speaker phone. Dr. Boyle would like INR to be therapeutic prior to discontinuation of bridging. Patient and will opt for home on warfarin with Lovenox bridge. does not have her prescription medication insurance card, will not be able to afford to pay out of pocket for Lovenox. She is going to look for her prescription card. Hopefully discharge home tomorrow morning. //Atrial Fibrillation w/ RVR Controlled on Cardizem Drip, but hypotension has caused it to be held, which results in tachycardia Patient has gone 5 years since his ablation without palpitations until recently Cardiology consulted = Patient started on Cardizem, digoxin, warfarin as per cardiology. Appreciate assistance. Patient discharged by cardiology. Plan for discharge tomorrow. //Questionable TIA Patient denies any weakness, only complained that he was dizzy during the palpitations MRA of brain shows no acute changes MRI of brain shows distal changes from peripheral disease, which is most likely chronic Anticoagulation is in place for the atrial fibrillation = 10/13. CT a of neck performed and negative for stenosis //Incidental thyroid mass. TSH, free T4, total T3 all within normal limits. Follow-up with primary care. //Hypotension = 10/13. Blood pressure acceptable. //DVT Prophylaxis Heparin Discharge Planning plan discharge tomorrow on warfarin with Lovenox bridge. , case management looking into insurance coverage for Lovenox. We'll continue on Cardizem, digoxin. Pt Condition on Discharge: Good Discharge Disposition: Disch w/ Home Health Serv Discharge Time: > 30 minutes Discharge Instructions DIET: Follow Instructions for: Heart Healthy Diet Activities you can perform: Regular-No Restrictions Follow up Referrals: Cardiology - 1 Week with Honorio Boyle MD Neurology - 1 Week with Satish Gonzalez MD PhD PCP Follow-up - 1 Week New Medications: Enoxaparin Inj (Enoxaparin Inj) 60 Mg/0.6 Ml Syr 60 MG SQ BID for Blood Clot Prevention for 5 Days, SYRINGE 0 Refills Digoxin (Digoxin) 0.25 Mg Tab 0.25 MG PO DAILY for HEART for 30 Days, #30 TAB followup with cardiology to check blood levels Diltiazem CD 24 HR (Diltiazem CD 24 HR) 120 Mg Caper 120 MG PO DAILY for heart for 30 Days, #30 CAP Warfarin (Coumadin) 5 Mg Tab 5 MG PO DAILY@1600 for prevent stroke for 30 Days, TAB make sure to followup with cardiology or primary care within next week to check levels. Continued Medications: Thyroid (Ten Sleep Thyroid) 15 Mg Tab 30 MG PO DAILY, TAB Shan Renner MD Oct 14, 2017 18:51
[2017-10-14] MEDS: ENOXAPARIN SODIUM 60 MG/0.6 ML SYRINGE SQ SCH (21:07)
[2017-10-15] VITALS (22 sets, daily range): BP systolic 87–105; BP diastolic 51–69; PULSE 68–126; RESP 16–20; TEMP 97.5–98.4; O2SAT 93–98
[2017-10-15 06:40] LABS: INTERNATIONAL NORMALIZED RATIO 1.3 RATIO; PROTHROMBIN TIME - PATIENT 13.4 SEC (9.8-11.6)
[2017-10-15] MEDS: INSULIN ASPART SUPPLEMENTAL SCALE SQ SCH ×4 (08:00→20:57)
[2017-10-15] MEDS: SODIUM CHLORIDE 0.9% FLUSH 10 ML FLUSH IV FLUSH SCH ×2 (09:00→20:56)
[2017-10-15] MEDS: DOCUSATE SODIUM 50 MG/SENNA 8.6 MG TAB PO SCH ×2 (09:00→20:56)
[2017-10-15] MEDS: DIGOXIN 0.25 MG TAB PO SCH (09:30)
[2017-10-15] MEDS: THYROID 30 MG TAB PO SCH (09:30)
[2017-10-15] MEDS: ENOXAPARIN SODIUM 60 MG/0.6 ML SYRINGE SQ SCH ×2 (09:31→20:58)
[2017-10-15] MEDS: DILTIAZEM-CD 120 MG CAP ER PO SCH (09:34)
--- NOTE | 2017-10-15 11:01 | HHI.PR ---
Subjective Remarks Follow-up for atrial fibrillation. Patient is currently doing well. Denies any chest pain, shortness of breath, fever or chills. He feels that his heart rate is going up occasionally. Objective Vitals Vital Signs Date Time Temp Pulse Resp B/P (MAP) Pulse Ox O2 Delivery O2 Flow Rate FiO2 10/15/17 07:27 97.5 93 16 96/64 (75) 98 10/15/17 04:00 98.0 126 20 96/69 (78) 98 10/15/17 03:55 125 10/15/17 00:00 98.0 101 18 96/60 (72) 93 10/14/17 21:31 95 10/14/17 20:00 98.1 132 18 111/64 (80) 98 10/14/17 18:33 61 10/14/17 17:00 72 10/14/17 16:00 66 10/14/17 15:07 98.4 70 18 110/64 (79) 97 10/14/17 15:00 69 10/14/17 14:00 80 10/14/17 13:00 90 10/14/17 12:00 98 10/14/17 11:51 97.6 93 18 110/76 (87) 100 10/14/17 11:00 92 I/O 10/14/17 10/14/17 10/14/17 10/15/17 10/15/17 10/15/17 07:00 15:00 23:00 07:00 15:00 23:00 Intake Total 240 ml 1000 ml 930 ml 240 ml Output Total 650 ml 300 ml Balance -410 ml 1000 ml 630 ml 240 ml Intake Oral 240 ml 930 ml 240 ml IV Total 1000 ml Output Urine Total 650 ml 300 ml # Voids 2 4 3 Result Diagram: 10/14/17 0517 10/14/17 1035 Imaging Last Impressions Neck CTA 10/13/17 0000 Signed Impressions: Service Date/Time: Friday, October 13, 2017 11:33 - CONCLUSION: Negative for hemodynamically significant stenosis. 3.5 cm right thyroid mass. Clive Stauffer MD FACR Head Magnetic Resonance Angiography 10/12/17 0000 Signed Impressions: Service Date/Time: Thursday, October 12, 2017 10:20 - CONCLUSION: No acute disease. Jose Martinez MD Brain MRI 10/12/17 0000 Signed Impressions: Service Date/Time: Thursday, October 12, 2017 10:20 - CONCLUSION: 1. No acute infarct, acute hemorrhage, midline shift or extra-axial fluid collections. 2. Moderate periventricular and subcortical white matter small vessel ischemic changes bilaterally. 3. Mild bilateral pontine small vessel ischemic changes. 4. Cerebral atrophy. Jose Martinez MD Chest X-Ray 10/11/17 1728 Signed Impressions: Service Date/Time: Wednesday, October 11, 2017 17:32 - CONCLUSION: 1. Findings of COPD. No acute cardiopulmonary disease. Ilan Mendoza MD Head CT 10/11/17 0000 Signed Impressions: Service Date/Time: Wednesday, October 11, 2017 18:01 - CONCLUSION: 1. Aging brain with enlarged CSF spaces and chronic white matter ischemic disease. 2. No evidence of acute infarct, hemorrhage, mass or edema. Liang Calderon MD Objective Remarks GENERAL: Alert, oriented 3, NAD. SKIN: Warm and dry. HEAD: Normocephalic. EYES: No scleral icterus. No injection or drainage. NECK: Supple, trachea midline. No JVD or lymphadenopathy. CARDIOVASCULAR: Regular rate and rhythm without murmurs, gallops, or rubs. RESPIRATORY: Breath sounds equal bilaterally. No accessory muscle use. GASTROINTESTINAL: Abdomen soft, non-tender, nondistended. MUSCULOSKELETAL: No cyanosis, or edema. BACK: Nontender without obvious deformity. No CVA tenderness. Procedures No invasive procedures. A/P Problem List: (1) Atrial fibrillation with RVR ICD Code: I48.91 - Unspecified atrial fibrillation (2) TIA (transient ischemic attack) ICD Code: G45.9 - Transient cerebral ischemic attack, unspecified (3) Thrombocytopenia ICD Code: D69.6 - Thrombocytopenia, unspecified (4) COPD (chronic obstructive pulmonary disease) ICD Code: J44.9 - Chronic obstructive pulmonary disease, unspecified Assessment and Plan Atrial Fibrillation w/ RVR Controlled on Cardizem Drip, but hypotension has caused it to be held, which results in tachycardia Patient has gone 5 years since his ablation without palpitations until recently Cardiology consulted - Patient started on Cardizem, digoxin, warfarin as per cardiology. Appreciate assistance. Patient discharged by cardiology. Plan for discharge tomorrow. Questionable TIA Patient denies any weakness, only complained that he was dizzy during the palpitations MRA of brain shows no acute changes MRI of brain shows distal changes from peripheral disease, which is most likely chronic Anticoagulation is in place for the atrial fibrillation CT a of neck performed and negative for stenosis Incidental thyroid mass. TSH, free T4, total T3 all within normal limits. Follow-up with primary care. If heart rate remains controlled, patient can be discharged home today. Serafin Coates DO Oct 15, 2017 11:01 am
[2017-10-15] MEDS ORDERED: METOPROLOL TARTRATE 25 MG TAB PO ONE (14:15)
[2017-10-15] MEDS ORDERED: PILL SPLITTER OTHER PRN (14:30)
[2017-10-15] MEDS: WARFARIN SOD 5 MG TAB PO SCH (15:01)
--- NOTE | 2017-10-15 15:16 | PD.CARD.PN ---
Subjective Subjective Remarks asleep in nad Objective Medications Current Medications Medications (Trade) Dose Ordered Sig/[place] Route Start Time Stop Time Status Last Admin (NS Flush) 2 ml UNSCH PRN IV FLUSH 10/11/17 19:30 (NS Flush) 2 ml BID IV FLUSH 10/11/17 21:00 10/15/17 09:00 (Zofran Inj) 4 mg Q6H PRN IVP 10/11/17 19:30 (Tylenol) 650 mg Q6H PRN PO 10/11/17 19:30 (Alpine 5-325 Mg) 1 tab Q4H PRN PO 10/11/17 19:30 (Morphine Inj) 2 mg Q3H PRN IV PUSH 10/11/17 19:30 (Paty-Colace) 1 tab BID PO 10/11/17 21:00 10/14/17 21:06 (Milk Of Magnesia Liq) 30 ml Q12H PRN PO 10/11/17 19:30 (Senokot) 17.2 mg Q12H PRN PO 10/11/17 19:30 (Dulcolax Supp) 10 mg DAILY PRN RECTAL 10/11/17 19:30 (Lactulose Liq) 30 ml DAILY PRN PO 10/11/17 19:30 ([place] Thyroid) 30 mg DAILY PO 10/12/17 09:00 10/15/17 09:30 (NovoLOG SUPPLEMENTAL SCALE) 1 ACHS SQ 10/12/17 12:00 (D50w (Vial) Inj) 50 ml UNSCH PRN IV PUSH 10/12/17 11:30 (Glucagon Inj) 1 mg UNSCH PRN OTHER 10/12/17 11:30 (Coumadin) 5 mg DAILY@1600 PO 10/13/17 16:00 10/15/17 15:01 (Lanoxin) 0.25 mg DAILY PO 10/13/17 16:00 10/15/17 09:30 (Cardizem Cd) 120 mg DAILY PO 10/13/17 16:00 10/15/17 09:34 (Lovenox Inj) 60 mg Q12H SQ 10/14/17 21:00 10/15/17 09:31 (Lopressor) 12.5 mg Q8HR PO 10/15/17 22:00 (Pill Splitter) 1 ea UNSCH PRN OTHER 10/15/17 14:30 Vital Signs / I&O Vital Signs Date Time Temp Pulse Resp B/P (MAP) Pulse Ox O2 Delivery O2 Flow Rate FiO2 10/15/17 15:02 98.2 83 18 105/65 (78) 96 10/15/17 11:30 97.8 96 17 105/59 (74) 96 10/15/17 07:27 97.5 93 16 96/64 (75) 98 10/15/17 04:00 98.0 126 20 96/69 (78) 98 10/15/17 03:55 125 10/15/17 00:00 98.0 101 18 96/60 (72) 93 10/14/17 21:31 95 10/14/17 20:00 98.1 132 18 111/64 (80) 98 10/14/17 18:33 61 10/14/17 17:00 72 10/14/17 16:00 66 I/O 10/14/17 10/14/17 10/14/17 10/15/17 10/15/17 10/15/17 06:59 14:59 22:59 06:59 14:59 22:59 Intake Total 240 ml 1000 ml 930 ml 240 ml Output Total 650 ml 300 ml Balance -410 ml 1000 ml 630 ml 240 ml Intake Oral 240 ml 930 ml 240 ml IV Total 1000 ml Output Urine Total 650 ml 300 ml # Voids 2 4 3 Physical Exam GENERAL: SKIN: Warm and dry. HEAD: Normocephalic. EYES: No scleral icterus. No injection or drainage. NECK: Supple, trachea midline. No JVD or lymphadenopathy. CARDIOVASCULAR: Regular rate and rhythm without murmurs, gallops, or rubs. RESPIRATORY: Breath sounds equal bilaterally. No accessory muscle use. GASTROINTESTINAL: Abdomen soft, non-tender, nondistended. MUSCULOSKELETAL: No cyanosis, or edema. BACK: Nontender without obvious deformity. No CVA tenderness. Laboratory Laboratory Tests Test 10/15/17 04:58 Prothrombin Time 13.4 SEC Prothromb Time International Ratio 1.3 RATIO Assessment and Plan Problem List: (1) Atrial flutter with rapid ventricular response ICD Codes: I48.92 - Unspecified atrial flutter Status: Acute (2) TIA (transient ischemic attack) ICD Codes: G45.9 - Transient cerebral ischemic attack, unspecified Assessment and Plan 1.) Aflutter - rate controlled, convert iv cardizem to po, chadsvasc score = 3, therefore recommend coumadin or noac, f/u neuro work up, patient requests to start coumadin, due to tia will need therapeutic inr > 2.0 prior to discharge, continue coumadin, d/w patient and nurse Honorio Boyle MD Oct 15, 2017 15:16
[2017-10-15] MEDS: METOPROLOL TARTRATE 25 MG TAB PO SCH (20:56)
[2017-10-16] VITALS (11 sets, daily range): BP systolic 85–102; BP diastolic 50–69; PULSE 64–84; RESP 17–18; TEMP 97.3–97.8; O2SAT 92–98
[2017-10-16] MEDS: METOPROLOL TARTRATE 25 MG TAB PO SCH (04:27)
[2017-10-16] MEDS ORDERED: METO25TA3 PO ×2 (07:55→08:18)
[2017-10-16] MEDS: INSULIN ASPART SUPPLEMENTAL SCALE SQ SCH (08:00)
--- NOTE | 2017-10-16 08:19 | HHI.PR ---
Subjective Remarks Follow up for Afib. Patient had a very good night. No acute concerns. Objective Vitals Vital Signs Date Time Temp Pulse Resp B/P (MAP) Pulse Ox O2 Delivery O2 Flow Rate FiO2 10/16/17 06:00 67 10/16/17 05:00 64 10/16/17 04:00 97.5 64 18 101/63 (76) 92 10/16/17 04:00 68 10/16/17 03:00 67 10/16/17 02:00 66 10/16/17 01:00 66 10/16/17 00:00 97.8 67 18 85/50 (62) 96 10/16/17 00:00 68 10/15/17 23:00 68 10/15/17 22:00 68 10/15/17 21:00 68 10/15/17 20:00 79 10/15/17 20:00 98.4 69 18 87/51 (63) 95 10/15/17 18:00 73 10/15/17 17:00 68 10/15/17 16:00 87 10/15/17 15:02 98.2 83 18 105/65 (78) 96 10/15/17 15:00 73 10/15/17 14:00 69 10/15/17 13:00 82 10/15/17 12:00 92 10/15/17 11:30 97.8 96 17 105/59 (74) 96 10/15/17 11:00 94 10/15/17 10:00 112 10/15/17 09:00 96 I/O 10/15/17 10/15/17 10/15/17 10/16/17 10/16/17 10/16/17 07:00 15:00 23:00 07:00 15:00 23:00 Intake Total 240 ml 740 ml 240 ml Output Total 680 ml Balance 240 ml 60 ml 240 ml Intake Oral 240 ml 740 ml 240 ml Output Urine Total 680 ml # Voids 3 3 # Bowel Movements 1 Result Diagram: 10/14/17 0517 10/14/17 1035 Imaging Last Impressions Neck CTA 10/13/17 0000 Signed Impressions: Service Date/Time: Friday, October 13, 2017 11:33 - CONCLUSION: Negative for hemodynamically significant stenosis. 3.5 cm right thyroid mass. Clive Stauffer MD FACR Head Magnetic Resonance Angiography 10/12/17 0000 Signed Impressions: Service Date/Time: Thursday, October 12, 2017 10:20 - CONCLUSION: No acute disease. Jose Martinez MD Brain MRI 10/12/17 0000 Signed Impressions: Service Date/Time: Thursday, October 12, 2017 10:20 - CONCLUSION: 1. No acute infarct, acute hemorrhage, midline shift or extra-axial fluid collections. 2. Moderate periventricular and subcortical white matter small vessel ischemic changes bilaterally. 3. Mild bilateral pontine small vessel ischemic changes. 4. Cerebral atrophy. Jose Martinez MD Chest X-Ray 10/11/17 1728 Signed Impressions: Service Date/Time: Wednesday, October 11, 2017 17:32 - CONCLUSION: 1. Findings of COPD. No acute cardiopulmonary disease. Ilan Mendoza MD Head CT 10/11/17 0000 Signed Impressions: Service Date/Time: Wednesday, October 11, 2017 18:01 - CONCLUSION: 1. Aging brain with enlarged CSF spaces and chronic white matter ischemic disease. 2. No evidence of acute infarct, hemorrhage, mass or edema. Liang Calderon MD Objective Remarks GENERAL: Alert, oriented 3, NAD. SKIN: Warm and dry. HEAD: Normocephalic. EYES: No scleral icterus. No injection or drainage. NECK: Supple, trachea midline. No JVD or lymphadenopathy. CARDIOVASCULAR: Regular rate and rhythm without murmurs, gallops, or rubs. RESPIRATORY: Breath sounds equal bilaterally. No accessory muscle use. GASTROINTESTINAL: Abdomen soft, non-tender, nondistended. MUSCULOSKELETAL: No cyanosis, or edema. BACK: Nontender without obvious deformity. No CVA tenderness. Procedures No invasive procedures. A/P Problem List: (1) Atrial fibrillation with RVR ICD Code: I48.91 - Unspecified atrial fibrillation (2) TIA (transient ischemic attack) ICD Code: G45.9 - Transient cerebral ischemic attack, unspecified (3) Thrombocytopenia ICD Code: D69.6 - Thrombocytopenia, unspecified (4) COPD (chronic obstructive pulmonary disease) ICD Code: J44.9 - Chronic obstructive pulmonary disease, unspecified Assessment and Plan Atrial Fibrillation w/ RVR - Cardiology cleared for discharge. However, due to elevated HR, it was necessary to keep patient in the hospital - With addition of Metoprolol 12.5mg, heart rate seems to be much better controlled. - Continue Warfarin bridging with Lovenox. Questionable TIA Patient denies any weakness, only complained that he was dizzy during the palpitations MRA of brain shows no acute changes MRI of brain shows distal changes from peripheral disease, which is most likely chronic Anticoagulation is in place for the atrial fibrillation CT a of neck performed and negative for stenosis Incidental thyroid mass. TSH, free T4, total T3 all within normal limits. Follow-up with primary care. Patient is being discharged home today. Serafin Coates DO Oct 16, 2017 08:18
[2017-10-16] MEDS: DILTIAZEM-CD 120 MG CAP ER PO SCH (08:51)
[2017-10-16] MEDS: DIGOXIN 0.25 MG TAB PO SCH (08:51)
[2017-10-16] MEDS: DOCUSATE SODIUM 50 MG/SENNA 8.6 MG TAB PO SCH (08:51)
[2017-10-16] MEDS: THYROID 30 MG TAB PO SCH (08:51)
[2017-10-16] MEDS: SODIUM CHLORIDE 0.9% FLUSH 10 ML FLUSH IV FLUSH SCH (08:52)
[2017-10-16] MEDS: ENOXAPARIN SODIUM 60 MG/0.6 ML SYRINGE SQ SCH (10:08)
== END 2017-10-16 10:20 | disposition home health service (06) | DRG 309 ==
LOC: NEPE 17:00 → NEDA 18:39 → HCIS 20:22
PROVIDERS: ADMIT Hospitalist; ATTEND Hospitalist
DX: I48.91 Unspecified atrial fibrillation (principal); G45.8 Other transient cerebral ischemic attacks and related syndromes; D69.6 Thrombocytopenia, unspecified; I95.9 Hypotension, unspecified; J44.9 Chronic obstructive pulmonary disease, unspecified; G62.9 Polyneuropathy, unspecified; Z85.46 Personal history of malignant neoplasm of prostate; I10 Essential (primary) hypertension; E07.9 Disorder of thyroid, unspecified
CPT/HCPCS: 70450; 70498; 70544; 70551; 71045; 80053; 80061; 80069; 82272; 82550; 82948; 83036; 83735; 83880; 84439; 84443; 84480; 84484; 85007; 85027; 85610; 85730; 93005; 93306; 96374; J1160; J1644; J1650; J7030; Q9967

== ENCOUNTER 2018-03-08 18:26 | Emergency (ER) | payer MEDICARE, BC ==
[~2018-03-08] VITALS: Ht 182.9 cm; Wt 65.5 kg
[~2018-03-08 18:26] MED LIST changes: -AUGM875T PO; +COUM5TAB PO; +DIGO0.25 PO; +DILT120C50 PO; +ENOX60IN SQ; +METO25TA3 PO
[2018-03-08 19:00] VITALS: BP 113/73; PULSE 124; RESP 18; TEMP 97.7; O2SAT 97
[2018-03-08] MEDS ORDERED: APIX5TAB PO (19:13)
[2018-03-08 19:17] VITALS: BP 108/70; PULSE 96; RESP 18; O2SAT 97
--- NOTE | 2018-03-08 19:59 | PD ---
HPI Chief Complaint: Cardiac Complaint Time Seen by Provider: 19:26 Travel History International Travel<30 days: No Contact w/Intl Traveler<30days: No Traveled to known affect area: No History of Present Illness HPI This is a 82-year-old male with a history of atrial fibrillation, presents today with complaints of palpitations and tachycardia. The patient states that he recently had episodes where he was dropping into the 30s with his heart rate. He states at that time his primary care physician stopped his rate controlling drugs. Recently he has been experiencing tachycardic episodes. He is been plain of being weak. states that she called his physician and they started him on digoxin. He has had 2 days of digoxin and is still having episodes of palpitations. The physician recommended that she come to the ER and have him loaded with IV digoxin. There is no chest pain, chest pressure. There is no nausea vomiting. There is weakness however it is generalized and mild. PFSH Past Medical History Hx Anticoagulant Therapy: Yes (Eliquis) Atrial Fibrillation: Yes (ABLATION X 3) Blood Disorders: No Heart Rhythm Problems: Yes Cancer: Yes (PROSTATE) Cardiac Catheterization: Yes Cardiovascular Problems: Yes (A-fib, [place], ) Chest Pain: No Congestive Heart Failure: No Cerebrovascular Accident: Yes (TIA) Diminished Hearing: No Endocrine: No Genitourinary: No Hypertension: No Immune Disorder: No Implanted Vascular Access Dvce: No Musculoskeletal: No Neurologic: Yes (genetic neuropathy) Psychiatric: No Reproductive: No Respiratory: Yes Myocardial Infarction: Yes Sleep Apnea: Yes Thyroid Disease: Yes Past Surgical History Abdominal Surgery: Yes (HERNIA X 2) Tonsillectomy: Yes Other Surgery: Yes (ablation x3) Social History Alcohol Use: No Tobacco Use: No Substance Use: No Allergies-Medications (Allergen,Severity, Reaction): Coded Allergies: No Known Allergies (Unverified , 03/11/16) Reported Meds & Prescriptions Reported Meds & Active Scripts Active Digoxin 0.25 Mg Tab 0.25 Mg PO DAILY 30 Days followup with cardiology to check blood levels Reported Eliquis (Apixaban) 5 Mg Tab 5 Mg PO BID Review of Systems Except as stated in HPI: all other systems reviewed are Neg HENT: No: Headaches, Lightheadedness, Neck Pain Cardiovascular: Positive: Palpitations, Irregular Rhythm, Tachycardia, No: Chest Pain or Discomfort Respiratory: No: Cough, Shortness of Breath Gastrointestinal: No: Nausea, Vomiting, Abdominal Pain Musculoskeletal: Positive: Weakness, No: Pain Neurologic: Positive: Weakness (Generalized), No: Dizziness, Headache Physical Exam Narrative GENERAL: Well-developed well-nourished male in no acute respiratory distress. SKIN: Focused skin assessment warm/dry. HEAD: Atraumatic. Normocephalic. EYES:No scleral icterus. No injection or drainage. ENT: No nasal bleeding or discharge. Mucous membranes pink and moist. NECK: Trachea midline. No JVD. CARDIOVASCULAR: Irregularly irregular with a rate in the 90s. He does go up into the low 100s occasionally. No obvious murmurs. RESPIRATORY: No accessory muscle use. Clear to auscultation. Breath sounds equal bilaterally. GASTROINTESTINAL: Abdomen soft, non-tender, nondistended. MUSCULOSKELETAL: No obvious deformities. No clubbing. No cyanosis. No edema. NEUROLOGICAL: Awake and alert. No obvious cranial nerve deficits. Motor grossly within normal limits. Normal speech. Data Data Last Documented VS Vital Signs Date Time Temp Pulse Resp B/P (MAP) Pulse Ox O2 Delivery O2 Flow Rate FiO2 03/08/18 20:30 87 18 110/75 (87) 97 Room Air 03/08/18 19:00 97.7 Orders Orders Basic Metabolic Panel (Bmp) (03/08/18 19:26) Digoxin (03/08/18 19:26) Digoxin Inj (Lanoxin Inj) (03/08/18 21:00) Labs Laboratory Tests Test 03/08/18 19:15 Blood Urea Nitrogen 22 MG/DL Creatinine 1.15 MG/DL Random Glucose 89 MG/DL Calcium Level 9.3 MG/DL Sodium Level 140 MEQ/L Potassium Level 4.3 MEQ/L Chloride Level 105 MEQ/L Carbon Dioxide Level 25.7 MEQ/L Anion Gap 9 MEQ/L Estimat Glomerular Filtration Rate 61 ML/MIN Digoxin Level 0.7 NG/ML MDM Medical Decision Making Medical Screen Exam Complete: Yes Emergency Medical Condition: Yes Differential Diagnosis Paroxysmal A. fib with RVR versus subjective palpitations versus subtherapeutic digoxin level Narrative Course 82-year-old male presents here with complaints of elevated heart rate. Patient has no discomfort. No shortness of breath. No other complaints. He was sent here by his primary care doctor for IV digoxin. His level comes back at 0.7 which is just slightly subtherapeutic. He has been given 0.5 IV. He will be instructed to start his digoxin as normal tomorrow. He will be instructed to follow-up with Dr. Dandre Brar and Dr. Matias. Diagnosis Primary Impression: Tachycardia Additional Impressions: Atrial fibrillation Subtherapeutic digoxin level Additional Instructions: Start your normal digoxin dose tomorrow. Follow-up with your primary care physician and hhas. Return if any concerns. Thank you for choosing [facility], we know you have a choice in healthcare. Disposition: 01 DISCHARGE HOME Condition: Stable Rick Borjas MD Mar 08, 2018 19:58
[2018-03-08 20:28] LABS: BICARBONATE 25.7 MEQ/L (21.0-32.0); CALCIUM 9.3 MG/DL (8.5-10.1); CREATININE 1.15 MG/DL (0.60-1.30)
[2018-03-08 20:30] VITALS: BP 110/75; PULSE 87; RESP 18; O2SAT 97
[2018-03-08 20:43] LABS: DIGOXIN 0.7 NG/ML (0.8-2.0)
[2018-03-08] MEDS ORDERED: DIGOXIN 0.5 MG/2 ML VIAL IV PUSH ONE (21:00)
--- NOTE | 2018-03-09 09:38 | EKG ---
Date Performed: 03/08/2018 Time Performed: 19:13:40 PTAGE: 82 years EKG: ATRIAL FLUTTER/TACHYCARDIA LOW QRS VOLTAGE IN EXTREMITY LEADS NONSPECIFIC T-WAVE ABNORMALIT Y ABNORMAL ECG PREVIOUS TRACING : 10/12/2017 06.14Since the previous tracing, no significant change noted DOCTOR: Ilan Trinh Interpretating Date/Time 03/09/2018 09:37:04
[2018-03-13] MEDS ORDERED: [UNRECOGNIZED DRUG - CODE] TOPICAL (10:44)
== END 2018-03-08 22:12 | disposition home or self-care (01) ==
LOC: NEPE 18:26
DX: R00.0 Tachycardia, unspecified (principal); I48.91 Unspecified atrial fibrillation; R00.2 Palpitations; I48.92 Unspecified atrial flutter; R94.31 Abnormal electrocardiogram [ECG] [EKG]; R53.1 Weakness; G62.9 Polyneuropathy, unspecified; I25.2 Old myocardial infarction; E07.9 Disorder of thyroid, unspecified
CPT/HCPCS: 80048; 80162; 93005; 96374; 99284; J1160

== ENCOUNTER 2018-03-11 11:21 | Day surgery (SDC) | payer MEDICARE, BC ==
[~2018-03-11 11:21] MED LIST changes: +APIX5TAB PO; -COUM5TAB PO; -DILT120C50 PO; -ENOX60IN SQ; -METO25TA3 PO; -THYR15 PO
[2018-03-11] MEDS ORDERED: LACTATED RINGER'S 1000 ML IV PRN (12:00)
[2018-03-11] MEDS ORDERED: CHLORHEXIDINE GLUCONATE 2 % 1 PACK (2 CLOTHS) TOPICAL PRN (12:00)
[2018-03-11] MEDS ORDERED: SODIUM CHLORID 0.9% 500 ML IV PRN (12:00)
[2018-03-11] MEDS ORDERED: METOPROLOL TARTRATE 25 MG TAB PO PRN (12:00)
[2018-03-11] MEDS ORDERED: POVIDONE IODINE 5% (ANTISEPSIS KIT) 4 APPLICATIONS EACH NARE PRN (12:00)
[2018-03-11] MEDS ORDERED: iodine TOPICAL (12:21)
--- NOTE | 2018-03-11 14:51 | CF ---
cc: Stephen Matias MD DATE: 03/11/2018 INDICATIONS FOR PROCEDURE: 1. Rule out left atrial appendage thrombus. 2. Proceed with cardioversion. CONSENT: Fully informed consent was obtained prior to the procedure. The risks of , bleeding, pneumothorax, aspiration, emergency pacemaker, cardiac arrest, foreseen and unforeseen complications were reviewed. The patient understood and gave consent. The risks of perforation and aspiration also have been reviewed. PROCEDURAL STATEMENTS: The patient was draped and prepped in sterile manner. The patient was given anesthesia, carried out by the Anesthesia Department. A NIKKIE was performed. FINDINGS: The aortic valve was trileaflet. There was evidence of trace aortic regurgitation. There was evidence of mild to moderate mitral regurgitation. Mitral valve moved normally. The tricuspid valve showed mild tricuspid regurgitation. The pulmonic valve moved normally. Overall ejection fraction was normal. There was no evidence of left atrial appendage thrombus. Interatrial septum and intraventricular septum intact. CONCLUSION: 1. Negative transesophageal echo for left atrial appendage thrombus. 2. Moderate mitral regurgitation. PLAN: Proceed with cardioversion. MD ALBERT Staton/CHRISTOS , 02:27 PM , 02:50 PM
--- NOTE | 2018-03-11 14:52 | MP ---
cc: Stephen Matias MD DATE OF OPERATION: 03/11/2018 PROCEDURE PERFORMED: Cardioversion. INDICATION: Atrial fibrillation/flutter. CONSENT: Full informed consent for the procedure. Risks of , stroke, heart attack, foreseen and unforeseen complications were reviewed. The patient agreed despite the risks. DETAILS OF PROCEDURE: The patient was anesthetized as per the anesthesia department. A full NIKKIE was performed. No left atrial appendage thrombus was seen. A 50 joule synchronized shock was then carried out, which converted the patient to sinus bradycardia. CONCLUSION: Successful cardioversion to sinus bradycardia. PLAN: We will plan to discontinue the digoxin and discharge the patient later today. Stephen Matias MD HAJ/KD , 02:39 PM , 02:51 PM
--- NOTE | 2018-03-12 18:58 | EKG ---
Date Performed: 03/11/2018 Time Performed: 11:49:12 PTAGE: 82 years EKG: Atrial flutter or atrial fibrillation with a controlled ventricular Response. Leftward axis Inferior infarct - age undetermined Anterolateral ST-T changes are nonspecific Generalized low QRS v oltages Since previous tracing, no significant change noted Abnormal ECG PREVIOUS TRACING : 03/08/2018 19.13 DOCTOR: Ayala Mireles Interpretating Date/Time 03/12/2018 18:56:30
--- NOTE | 2018-03-12 19:00 | EKG ---
Date Performed: 03/11/2018 Time Performed: 13:43:58 PTAGE: 82 years EKG: Sinus rhythm . Anterolateral T wave changes are nonspecific Generalized low QRS voltages Questionalbe inferior wal l infarct wih a low-amplitude complex. When compared to previous tracing, the patient has converted t o Normal sinus rhythm., from atrial flutter. Otherwise without significant serial change. Abnormal EC G PREVIOUS TRACING : 03/11/2018 11.49 DOCTOR: Ayala Mireles Interpretating Date/Time 03/12/2018 18:59:18
[2018-03-13] MEDS ORDERED: [UNRECOGNIZED DRUG - CODE] TOPICAL (10:44)
== END 2018-03-11 14:26 | disposition home or self-care (01) ==
LOC: HDOC 11:21 → HDIC 11:22 → HDOC 14:26
PROVIDERS: ATTEND Internal Medicine Cardiovascular Disease
DX: I48.91 Unspecified atrial fibrillation (principal); I48.92 Unspecified atrial flutter; I10 Essential (primary) hypertension
CPT/HCPCS: 92960; 93005